=== PATIENT | male | born 1960 | race Caucasian/White ===

== ENCOUNTER 2019-10-29 22:01 | Inpatient (IN) | payer BC ==
--- NOTE | 2019-10-29 22:15 | PDOC ---
Rapid Medical Evaluation Chief Complaint: Respiratory Time Seen by Provider: 10/29/19 22:10 Medical Evaluation: 10/29/19 22:10 55 year old male recent travel from [place] via flight 6 days ago c/o cough, shortness of breath and fever x2 days. denies taking ibuprofen / tylenol at home. PMHX: cardiomyopathy PMHX: Renetta Aponte Cardiology : Dr. Healy ([facility]) PE: patient alert ox3 slight shortness of breath A: suspected covid P: chest xray covid Discharge Disposition - Diagnosis Suspected 2019 novel coronavirus infection, Shortness of breath - Referrals Referrals: Renetta Aponte MD [Primary Care Provider] - - Patient Instructions - Post Discharge Activity
[2019-10-29] MEDS ORDERED: ACETAMINOPHEN 325 MG TABLET (FP) PO ONE (22:32)
--- NOTE | 2019-10-29 22:59 | PDOC ---
Attending Attestation - Resident Resident Name: Chandler Felder - ED Attending Attestation I have performed the following: I have examined & evaluated the patient, The case was reviewed & discussed with the resident, I agree w/resident's findings & plan - HPI HPI: 10/29/19 22:54 see resident hpi - Physicial Exam PE: 10/29/19 22:54 see resident exam - Medical Decision Making 10/29/19 22:58 58-year-old male with recent travel to the [facility] and airplane exposure with body aches nausea and low-grade fevers We will proceed with sepsis evaluation including viral swabs for influenza RSV and COVID-19 Due to patient's history of cardiomyopathy we will also evaluate for acute cardiac disease Pending results and reevaluation we will consider observation Discharge - Discharge Information Problems reviewed: Yes Clinical Impression/Diagnosis: Suspected 2019 novel coronavirus infection, Shortness of breath - Follow up/Referral Referrals: Renetta Aponte MD [Primary Care Provider] - - Patient Discharge Instructions - Post Discharge Activity
[2019-10-29] MEDS ORDERED: ONDANSETRON 4 MG/2 ML VIAL IVPUSH ONE (23:14)
[2019-10-29] MEDS ORDERED: ACETAMINOPHEN 1000 MG/100 ML VIAL (NON FORMULARY) IVPB ONE (23:14)
[2019-10-29] MEDS ORDERED: ACETAMINOPHEN INJECTION 100 ML IVPB ONE (23:16)
--- NOTE | 2019-10-30 00:11 | PDOC ---
History of Present Illness - General Chief Complaint: SIRS, Suspected/Possible Stated Complaint: FEVER,COUGH,SOB Time Seen by Provider: 10/29/19 22:10 History Source: Patient, Family Exam Limitations: No Limitations - History of Present Illness Initial Comments: 10/30/19 00:05 Zaire Piedra is a 58M with PMH cardiomyopathy of unknown origin taken Coreg/lisinopril/atrovastatin here for fever/nausea/myalgias and concern for covid-19. 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 No sick contacts at home or other exposures other than plane/trip. Denies chest pain, abd pain, urinary sx, has not been taking Tylenol or Motrin. Denies alcohol/drug/tobacco use. NKDA No other PSH. Past History - Medical History Allergies/Adverse Reactions: Allergies Allergy/AdvReac Type Severity Reaction Status Date / Time Fish Containing Products Allergy Verified 10/29/19 22:14 Home Medications: Ambulatory Orders Carvedilol [Coreg -] 12.5 mg PO BID 10/29/19 Lisinopril 5 mg PO DAILY 10/29/19 Simvastatin 20 mg PO HS 10/29/19 Cardiac Disorders: Yes COPD: No CHF: Yes Other medical history: arthritic hips Alexy - Immunization History Immunization Up to Date: Yes - Psycho-Social/Smoking History Smoking History: Never smoked - Substance Abuse Hx (Audit-C & DAST Scrn) How often the patient has a drink containing alcohol: Never Score: In Men: 4 or > Positive; In Women: 3 or > Positive: 0 Screen Result (Pos requires Nsg. Audit-10AR): Negative In the last yr the pt used illegal drug/Rx for NonMed reason: No Score: Yes response is considered Positive: 0 Screen Result (Positive result requires Nsg. DAST-10): Negative *Physical Exam - Vital Signs Last Vital Signs Temp Pulse Resp BP Pulse Ox 100.5 F H 110 H 20 122/90 94 L 10/29/19 22:07 10/29/19 22:07 10/29/19 22:07 10/29/19 22:07 10/29/19 22:07 ED Treatment Course - LABORATORY CBC & Chemistry Diagram: 10/30/19 00:00 10/30/19 00:00 - Medications Given in the ED: ED Medications Discontinued Medications Generic Name Dose Route Start Last Admin Trade Name Leonard PRN Reason Stop Dose Admin Acetaminophen 650 mg 10/29/19 22:32 10/29/19 23:25 Tylenol - PO 10/29/19 22:33 Not Given ONCE ONE Acetaminophen 1,000 mg 10/29/19 23:14 10/29/19 23:24 Ofirmev Injection - IVPB 10/29/19 23:15 1,000 mg ONCE ONE Administration Ondansetron HCl 4 mg 10/29/19 23:14 10/29/19 23:25 Zofran Injection IVPUSH 10/29/19 23:15 4 mg ONCE ONE Administration Medical Decision Making - Medical Decision Making 10/30/19 00:08 Patient has PMH cardiomyopathy but no chest pain, recent travel to [address] and now has fever/myalgias/SOB 6 days later, concerned for covid-19 infection. Getting basic labs, covid-19 swab, CXR, ECG given CM, and will evaluate for walking O2sat, giving Zofran and Ofirmev for nausea and fever. Likely meets criteria for discharge home with covid-19 precautions. 10/30/19 00:18 ECG shows sinus tachycardia HR 104 QTc 468, no CHRIS/D or TWI. CXR no concerning PNA or covid-19 pathology, no acute findings. Satting 96% on 3LNC. 10/30/19 01:48 Labs notable for: - Hgb 17.1 - Hct 51 - Plt 125 - CMP WNL - CP WNL - LDH 283 - ferritin 520.8 - glucose 223 CBC appears hemoconcentrated, giving 1L LR Patient desats to 90% off 3L NC O2, asymptomatic but candidate for admission given comorbidities and desat. Getting remaining covid-19 markers and CTA chest for further evaluation. Plan to admit to Med/Surg for likely covid-19 infection. 10/30/19 03:52 CTA bedside read shows bilateral ground glass opacities consistent with COVID- 19, no PE, also has R lung nodule. Starting on 125 Solu-Medrol, will discuss AC with admitting team. 10/30/19 04:19 Discussed case with malia Vallejo for admit to Med Surger under Dr. Brown, will figure out AC regimen and add on d-dimer for AM labs. Discharge - Discharge Information Problems reviewed: Yes Clinical Impression/Diagnosis: Suspected 2019 novel coronavirus infection, Shortness of breath Respiratory failure Qualifiers: Chronicity: acute Respiratory failure complication: hypoxia Qualified Code(s): J96.01 - Acute respiratory failure with hypoxia Condition: Stable - Admission Yes - Follow up/Referral - Patient Discharge Instructions - Post Discharge Activity
[2019-10-30 00:35] LABS: BASO % 0.3 % (0-2.0); EOS % 0.3 % (0-4.5); HEMOGLOBIN 17.1 GM/dL (11.7-16.9); MCH 28.8 pg (25.7-33.7); MCHC 33.5 g/dl (32.0-35.9); MEAN CELL VOLUME 86.2 fl (80-96); MEAN PLT VOLUME 9.5 fl (7.5-11.1); MONO % 7.8 % (3.8-10.2); NEUT % 71.6 % (42.8-82.8); PLATELET COUNT 125 K/MM3 (134-434); RBC 5.91 M/mm3 (4.00-5.60); RDW 14.4 % (11.9-15.9); WHITE BLOOD COUNT 5.8 K/mm3 (4.0-10.0)
[2019-10-30 00:43] LABS: INR 1.1 (0.83-1.09)
[2019-10-30 00:46] LABS: ACTIVATED PTT 29.8 SECONDS (25.2-36.5)
[2019-10-30 01:14] LABS: ALBUMIN 3.8 g/dl (3.4-5.0); ALK PHOS 109 U/L (45-117); ANION GAP 13 MMOL/L (8-16); BILIRUBIN,TOTAL 0.7 mg/dL (0.2-1); BLOOD UREA NITROGEN 9.6 mg/dL (7-18); CALCIUM 8.7 mg/dL (8.5-10.1); CHLORIDE 102 mmol/L (98-107); CO2 22 mmol/L (21-32); GLUCOSE,RANDOM 223 mg/dL (74-106); POTASSIUM 3.6 mmol/L (3.5-5.1); SGOT/AST 35 U/L (15-37); SGPT/ALT 39 U/L (13-61); SODIUM 138 mmol/L (136-145); TOT PROT 7.3 g/dl (6.4-8.2)
[2019-10-30] MEDS ORDERED: LACTATED RINGERS SOLUTION 1000 ML INFUS.BAG IV ONE (01:58)
[2019-10-30 02:38] LABS: LDH 283 U/L (87-246)
[2019-10-30] MEDS ORDERED: methylPREDNISolone NA SUCC 125 MG/2 ML VIAL IVPB ONE (03:49)
[2019-10-30] MEDS ORDERED: methylPREDNISolone NA SUCC 125 MG/2 ML VIAL ONE (03:58)
[2019-10-30] MEDS ORDERED: ALBUTEROL SO4 HFA INHALER IH PRN (04:43)
[2019-10-30] MEDS ORDERED: CEFTRIAXONE 1 GM in DEXTROSE 5%-WATER - 50 ML IVPB ONE (04:46)
[2019-10-30] MEDS ORDERED: AZITHROMYCIN IVPB 500 MG in DEXTROSE 5%-WATER - 250 ML IVPB ONE (04:47)
--- NOTE | 2019-10-30 04:51 | HP ---
CHIEF COMPLAINT: Fever, SOB, Myalgias PCP: Reggie Aponet HISTORY OF PRESENT ILLNESS: This is a 58 y/o male with a PMHx of Cardiomyopathy of unknown origin. Who presents to the ED with subjective fever 99.5, increased SOB, myalgias. loss of appetite x3 days. Patient reports recent travel between [facility] x 5 weeks. He reports returning from [place] last and was self- quarantining. He reports having abdominal pain x 1 week after eating pork sausage which he attributes to possible food poisoning. Patient denies chills, KAUR, dizziness, CP, palpitations, vomiting, diarrhea, constipation, dysuria ER course was notable for: (1) Sepsis Criteria Met: T 100.5, P 110, Spo2 90-94% (2) CTA- Neg PE, mild non-specific basilar and peripheral predominate reticulonodular infiltrates most likely due to Covid-19 Pneumonia (3) Ferritin- 520.8 (4) LD 283 (5) Platelets 125 Recent Travel: [place], [place] PAST MEDICAL HISTORY: See HPI PAST SURGICAL HISTORY: None Social History: Smoking: Former, > heavy quit 3 yrs ago Alcohol: Social Drugs: Denies Single, lives alone, employed [employer] Allergies Fish Containing Products Allergy (Verified 10/29/19 22:14) HOME MEDICATIONS: Home Medications Medication Instructions Recorded Carvedilol [Coreg -] 12.5 mg PO BID 10/29/19 Lisinopril 5 mg PO DAILY 10/29/19 Simvastatin 20 mg PO HS 10/29/19 REVIEW OF SYSTEMS CONSTITUTIONAL: fever,generalized weakness, malaise, loss of appetite Absent: chills, diaphoresis, weight change HEENT: Absent: rhinorrhea, nasal congestion, throat pain, throat swelling, difficulty swallowing, mouth swelling, ear pain, eye pain, visual changes CARDIOVASCULAR: Absent: chest pain, syncope, palpitations, irregular heart rate, lightheadedness, peripheral edema RESPIRATORY: shortness of breath, dyspnea with exertion Absent: cough, orthopnea, wheezing, stridor, hemoptysis GASTROINTESTINAL: abdominal pain, nausea Absent: abdominal distension, vomiting, diarrhea, constipation, melena, hematochezia GENITOURINARY: Absent: dysuria, frequency, urgency, hesitancy, hematuria, flank pain, genital pain MUSCULOSKELETAL: myalgia, arthralgia Absent: joint swelling, back pain, neck pain SKIN: Absent: rash, itching, pallor HEMATOLOGIC/IMMUNOLOGIC: Absent: easy bleeding, easy bruising, lymphadenopathy, frequent infections ENDOCRINE: Absent: unexplained weight gain, unexplained weight loss, heat intolerance, cold intolerance NEUROLOGIC: Absent: headache, focal weakness or paresthesias, dizziness, unsteady gait, seizure, mental status changes, bladder or bowel incontinence PSYCHIATRIC: Absent: anxiety, depression, suicidal or homicidal ideation, hallucinations. PHYSICAL EXAMINATION Vital Signs - 24 hr 10/29/19 10/29/19 10/30/19 22:07 23:00 01:15 Temperature 100.5 F H 99.1 F Pulse Rate 110 H Pulse Rate [ 79 Left Radial] Respiratory 20 16 Rate Blood Pressure 122/90 Blood Pressure 121/74 [Right Arm] O2 Sat by Pulse 94 L 98 98 Oximetry (%) 10/30/19 04:33 Temperature Pulse Rate Pulse Rate [ Left Radial] Respiratory Rate Blood Pressure Blood Pressure [Right Arm] O2 Sat by Pulse 98 Oximetry (%) GENERAL: Awake, alert, and fully oriented, in no acute distress. HEAD: Normal with no signs of trauma. EYES: Pupils equal, round and reactive to light, extraocular movements intact, sclera anicteric, conjunctiva clear. No lid lag. EARS, NOSE, THROAT: Ears normal, nares patent, oropharynx clear without exudates. Moist mucous membranes. NECK: Normal range of motion, supple without lymphadenopathy, JVD, or masses. LUNGS: Diminished bases. No wheezes, and no crackles. No accessory muscle use. HEART: Regular rate and rhythm, normal S1 and S2 without murmur, rub or gallop. ABDOMEN: Obese,soft, nontender, not distended, normoactive bowel sounds, no guarding, no rebound, no masses. No hepatomegaly or splenomegaly. MUSCULOSKELETAL: Normal range of motion at all joints. No bony deformities or tenderness. No CVA tenderness. UPPER EXTREMITIES: 2+ pulses, warm, well-perfused. No cyanosis. No clubbing. No peripheral edema. LOWER EXTREMITIES: 2+ pulses, warm, well-perfused. No calf tenderness. No peripheral edema. NEUROLOGICAL: Cranial nerves II-XII intact. Normal speech. Gait not observed. PSYCHIATRIC: Cooperative. Good eye contact. Appropriate mood and affect. SKIN: Warm, dry, normal turgor, no rashes or lesions noted, normal capillary refill. Laboratory Results - last 24 hr 10/30/19 10/30/19 10/30/19 00:00 00:00 00:00 WBC 5.8 RBC 5.91 H Hgb 17.1 H Hct 51.0 H MCV 86.2 MCH 28.8 MCHC 33.5 RDW 14.4 Plt Count 125 L MPV 9.5 Absolute Neuts (auto) 4.2 Neutrophils % 71.6 Lymphocytes % 20.0 Monocytes % 7.8 Eosinophils % 0.3 Basophils % 0.3 Nucleated RBC % 0 PT with INR 13.00 INR 1.10 H PTT (Actin FS) 29.8 Sodium 138 Potassium 3.6 Chloride 102 Carbon Dioxide 22 Anion Gap 13 BUN 9.6 Creatinine 1.0 Est GFR (CKD-EPI)AfAm 95.73 Est GFR (CKD-EPI)NonAf 82.60 Random Glucose 223 H Calcium 8.7 Ferritin 520.8 H Total Bilirubin 0.7 AST 35 ALT 39 Alkaline Phosphatase 109 LD Total 283 H Creatine Kinase 64 Troponin I < 0.02 Total Protein 7.3 Albumin 3.8 ASSESSMENT/PLAN: 58 y/o male with a PMHx of Cardiomyopathy unknown origin. Admitted to M/S for Suspected Covid-19 Infection, Pneumonia, Acute Respiratory Failure with Hypoxia for further evaluation of their emergent condition. 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 However with patient's presenting symptoms and recent travel to [place] he is more likely a high risk Covid PCR-pending Isolation Precautions- Airborne, Droplet, Contact Chest Xray image reviewed- ?infiltrate b/l CTA image, report reviewed- neg PE, basilar infiltrates suggestive of Covid Pneumonia Blood Cultures, Urine Culture-pending Ceftriaxone, Azithromycin for CAP Appreciate ID and Pulmonology consults Monitor CBC, CMP, Mg, CRP, LDH, Ferritin, dDimer O2 MVI Zinc Albuterol MDI Will start on Eliquis Monitor vitals Code(s): Z20.828 - CONTACT W AND EXPOSURE TO OTH VIRAL COMMUNICABLE DISEASES (2) Acute respiratory failure with hypoxia Assessment/Plan: Likely due to Covid 19 Infection vs PE Patient improved with supplemental O2 Chest Xray image reviewed- ? infiltrate CTA reviewed- no PE, mild nonspecific basilar and peripheral predominant reticulonodular infiltrates most likely due to Covid 19 pneumonia Continue O2 Appreciate Pulmonology consult Albuterol MDI Monitor vitals Code(s): J96.01 - ACUTE RESPIRATORY FAILURE WITH HYPOXIA (3) Sepsis Assessment/Plan: Likely secondary to Covid-19 Infection Pneumonitis Sepsis Criteria Met: T 100.5, P 110, Spo2 90-94% qSOFA 1 Blood Cultures-pending Urine Culture-pending Chest Xray-reviewed CTA-reviewed Will treat empirically with Ceftriaxone, Azithromycin Appreciate ID consult Monitor CBC, CMP Maintain MAP >65 Code(s): A41.9 - SEPSIS, UNSPECIFIED ORGANISM (4) Pneumonia Assessment/Plan: Likely due to Covid 19 infection High Risk for COVID- recent travel from [place] (state with increased Covid cases) Blood Cultures-pending Urine Legionella-pending Initiated Ceftriaxone, Azithromycin for CAP Chest Xray-reviewed CTA-reviewed O2 Monitor CBC, CMP Monitor vitals Code(s): J18.9 - PNEUMONIA, UNSPECIFIED ORGANISM (5) Cardiomyopathy Assessment/Plan: stable Continue Coreg, Lisinopril EKG-ST, nonspecific ST abnormality, QTC 468ms Trop 0.02 Code(s): I42.9 - CARDIOMYOPATHY, UNSPECIFIED Visit type - Emergency Visit Emergency Visit: Yes ED Registration Date: 10/29/19 Care time: The patient presented to the Emergency Department on the above date and was hospitalized for further evaluation of their emergent condition. - New Patient This patient is new to me today: Yes Date on this admission: 10/30/19 - Critical Care Critical Care patient: No
[2019-10-30] MEDS ORDERED: AZITHROMYCIN IVPB 500 MG/250 ML BAG IVPB ONE (05:42)
[2019-10-30] MEDS ORDERED: CEFTRIAXONE 1 GM/50 ML BAG ONE (05:42)
--- NOTE | 2019-10-30 08:03 | PN ---
Teaching Attending Note Name of Resident: Anabel Yoo ATTENDING PHYSICIAN STATEMENT I saw and evaluated the patient. I reviewed the resident's note and discussed the case with the resident. I agree with the resident's findings and plan as documented. SUBJECTIVE: OBJECTIVE: Vital Signs Temperature 98.3 F 10/30/19 06:50 Pulse Rate 88 10/30/19 06:50 Respiratory Rate 18 10/30/19 06:50 Blood Pressure 130/74 10/30/19 06:50 O2 Sat by Pulse Oximetry (%) 95 10/30/19 06:50 General: Elderly man, comfortable, not in distress HEENT mucous membranes moist, no anemia, no jaundice, PERRLA, no nystagmus Neck: No JVD, supple, no bruit, thyroid palpably normal, normal carotid pulsations. Chest: Nontender, bilateral minimal basal rales. CVS: S1-S2 regular no murmur/gallop/rub Abdomen: Nondistended, soft, bowel sounds present. Extremities: No edema., No Calf tenderness, pulses present VISUAL ASSOCIATE: AO X3 , no gross motor sensory deficit CBC,CMP WBC 5.8 K/mm3 (4.0-10.0) 10/30/19 00:00 RBC 5.91 M/mm3 (4.00-5.60) H 10/30/19 00:00 Hgb 17.1 GM/dL (11.7-16.9) H 10/30/19 00:00 Hct 51.0 % (35.4-49) H 10/30/19 00:00 MCV 86.2 fl (80-96) 10/30/19 00:00 MCH 28.8 pg (25.7-33.7) 10/30/19 00:00 MCHC 33.5 g/dl (32.0-35.9) 10/30/19 00:00 RDW 14.4 % (11.9-15.9) 10/30/19 00:00 Plt Count 125 K/MM3 (134-434) L 10/30/19 00:00 MPV 9.5 fl (7.5-11.1) 10/30/19 00:00 Absolute Neuts (auto) 4.2 K/mm3 (1.5-8.0) 10/30/19 00:00 Neutrophils % 71.6 % (42.8-82.8) 10/30/19 00:00 Lymphocytes % 20.0 % (8-40) 10/30/19 00:00 Monocytes % 7.8 % (3.8-10.2) 10/30/19 00:00 Eosinophils % 0.3 % (0-4.5) 10/30/19 00:00 Basophils % 0.3 % (0-2.0) 10/30/19 00:00 Nucleated RBC % 0 % (0-0) 10/30/19 00:00 Sodium 138 mmol/L (136-145) 10/30/19 00:00 Potassium 3.6 mmol/L (3.5-5.1) 10/30/19 00:00 Chloride 102 mmol/L (98-107) 10/30/19 00:00 Carbon Dioxide 22 mmol/L (21-32) 10/30/19 00:00 Anion Gap 13 MMOL/L (8-16) 10/30/19 00:00 BUN 9.6 mg/dL (7-18) 10/30/19 00:00 Creatinine 1.0 mg/dL (0.55-1.3) 10/30/19 00:00 Est GFR (CKD-EPI)AfAm 95.73 10/30/19 00:00 Est GFR (CKD-EPI)NonAf 82.60 10/30/19 00:00 POC Glucometer 263 UNITS (80-120) 10/30/19 07:38 Random Glucose 223 mg/dL (74-106) H 10/30/19 00:00 Calcium 8.7 mg/dL (8.5-10.1) 10/30/19 00:00 Ferritin 520.8 ng/ml (8-388) H 10/30/19 00:00 Total Bilirubin 0.7 mg/dL (0.2-1) 10/30/19 00:00 AST 35 U/L (15-37) 10/30/19 00:00 ALT 39 U/L (13-61) 10/30/19 00:00 Alkaline Phosphatase 109 U/L (45-117) 10/30/19 00:00 LD Total 283 U/L (87-246) H 10/30/19 00:00 Creatine Kinase 64 U/L (26-308) 10/30/19 00:00 Troponin I < 0.02 ng/ml (0.00-0.05) 10/30/19 00:00 Total Protein 7.3 g/dl (6.4-8.2) 10/30/19 00:00 Albumin 3.8 g/dl (3.4-5.0) 10/30/19 00:00 D-dimers: 1042 CRP: 1.7 Chest x-ray: Bilateral groundglass infiltrate COVID-19: Collected result awaited: ECG:shows sinus tachycardia HR 104 QTc 468, no CHRIS/D or TWI. CT chest: No pulmonary embolism no pulmonary embolism Large right paratracheal lymph node 2.6X 1.6 cm 8 X 8 mm right middle lobe nodule Patchy infiltrate Early COPD Active Medications Acetaminophen (Tylenol -) 650 mg PO Q6H PRN PRN Reason: FEVER Albuterol Sulfate (Ventolin Hfa Inhaler -) 2 puff IH Q6H PRN PRN Reason: SHORT OF BREATH/WHEEZING Apixaban (Eliquis -) 5 mg PO BID KUMAR Atorvastatin Calcium (Lipitor -) 10 mg PO HS KUMAR Carvedilol (Coreg -) 12.5 mg PO BID KUMAR Ceftriaxone Sodium 1 gm/ (Dextrose) 50 mls @ 200 mls/hr IVPB DAILY KUMAR; Protocol Azithromycin 500 mg/ Dextrose 250 mls @ 250 mls/hr IVPB DAILY KUMAR Lisinopril (Prinivil) 5 mg PO DAILY [facility] Multivitamins/Minerals/Vitamin C (Tab-A-Vit -) 1 tab PO DAILY KUMAR Zinc Sulfate (Orazinc -) 220 mg PO DAILY KUMAR ASSESSMENT AND PLAN: 58-year-old man history of nonischemic cardiomyopathy diagnosed 10 years ago underwent cardiac catheterization, stable ejection fraction 37% last echo was 3 years ago, follow-up at [facility], 4 pillows orthopnea stable, no PND, stage C, NYHA class 1 , no recent worsening shortness of breath, came back from [place] on last , 2 days ago developed dry cough with low-grade fever and shortness of breath came to ED for evaluation normal CBC, chest x-ray shows bilateral patchy infiltrate Active issues: 1. Hypoxic respiratory failure:, patient present with fever with cough and shortness of breath recent traveling to [place], considering imaging finding, mildly elevated D-dimers, LDH, and ferritin will rule out COVID-19 pneumonia, possibility of community-acquired pneumonia on empiric ceftriaxone and azithromycin, hypoxemia improved, follow-up urine Legionella and streptococcal antigen, follow-up pending blood culture, meantime will will continue high intensity DVT prophylaxis. 2. 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 Continue lisinopril 5 mg, Coreg at present no indication for diuretics 3. Pulmonary nodule and lymphadenopathy: Patient has a right-sided lymph paratracheal lymph node 2.6 x1.6 with right middle lobe pulmonary nodule history of smoking and mild COPD changes will follow-up with pulmonary meantime continue albuterol as needed. 4. Morbid obesity nutrition consult and weight management as an outpatient. Case discussed with resident.
[2019-10-30] MEDS ORDERED: MULTIVITAMINS (DAILY MVI) TABLET (FP) ONE (08:56)
[2019-10-30] MEDS ORDERED: LISINOPRIL 5 MG TABLET (FP) ONE (08:57)
[2019-10-30] MEDS ORDERED: APIXABAN 5 MG TABLET ONE (08:57)
[2019-10-30] MEDS ORDERED: ZINC SULFATE 220 MG CAPSULE (FP) ONE (08:57)
[2019-10-30] MEDS ORDERED: CARVEDILOL 12.5 MG TABLET (FP) ONE ×2 (08:58→21:15)
[2019-10-30] MEDS: CARVEDILOL 12.5 MG TABLET (FP) PO SCH ×2 (09:03→21:35)
[2019-10-30] MEDS: ZINC SULFATE 220 MG CAPSULE (FP) PO SCH (09:03)
[2019-10-30] MEDS: MULTIVITAMINS (DAILY MVI) TABLET (FP) PO SCH (09:03)
[2019-10-30] MEDS: LISINOPRIL 5 MG TABLET (FP) PO SCH (09:03)
[2019-10-30] MEDS ORDERED: ENOXAPARIN NA (PORCINE) 120 MG/0.8 ML DISP.SYRIN SQ SCH (10:00)
[2019-10-30] MEDS ORDERED: APIXABAN 5 MG TABLET PO SCH ×2 (10:00→22:00)
[2019-10-30] MEDS ORDERED: ACETAMINOPHEN 325 MG TABLET (FP) ONE (10:15)
[2019-10-30] MEDS: ACETAMINOPHEN 325 MG TABLET (FP) PO PRN (10:18)
--- NOTE | 2019-10-30 10:40 | EKG ---
Test Reason : Blood Pressure : / mmHG Vent. Rate : 104 BPM Atrial Rate : 104 BPM P-R Int : 162 ms QRS Dur : 100 ms QT Int : 356 ms P-R-T Axes : 051 -04 049 degrees QTc Int : 468 ms SINUS TACHYCARDIA NONSPECIFIC ST ABNORMALITY ABNORMAL ECG NO PREVIOUS ECGS AVAILABLE Confirmed by MD Gurpreet, Dylon ([id number]) on 10/30/2019 10:39:34 AM Referred By: Confirmed By:Dylon Vázquez MD
[2019-10-30 11:07] LABS: MAGNESIUM 2.2 mg/dL (1.8-2.4); N-TERMINAL BNP 175.4 pg/ml (5-125)
--- NOTE | 2019-10-30 11:20 | PN ---
Progress Note (short form) - Note Progress Note: ID consult dictated pneumonia suspected covid 19 disease in traveler from [place] he is not hypoxic would continue current treatment for CAP-rocephin/zith f/u cultures, urinary antigen covid pcr- isolate obesity and history of cardiomyopathy make him at high risk for covid 19 - would observe in hospital for now polycythemia- ?- repeat cbc in am Problem List - Problems (1) Pneumonia Code(s): J18.9 - PNEUMONIA, UNSPECIFIED ORGANISM (2) Suspected 2019 novel coronavirus infection Code(s): Z20.828 - CONTACT W AND EXPOSURE TO [facility] VIRAL COMMUNICABLE DISEASES (3) Polycythemia Code(s): D75.1 - SECONDARY POLYCYTHEMIA
--- NOTE | 2019-10-30 12:36 | PN ---
Physical Exam: SUBJECTIVE: Patient seen and examined at bedside this morning. Patient admitted overnight due to shortness of breath and subjective fevers. Chest CT suspicious for COVID pneumonia. This morning, patient reports feeling better, saturating >95% on room air, without any complaints of chest pain, SOB, nausea, vomiting, abdominal pain, diarrhea, urinary symptoms. OBJECTIVE: Vital Signs Temperature 98.9 F 10/30/19 10:36 Pulse Rate 82 10/30/19 10:36 Respiratory Rate 16 10/30/19 10:36 Blood Pressure 133/72 10/30/19 10:36 O2 Sat by Pulse Oximetry (%) 95 10/30/19 10:36 GENERAL: The patient is awake, alert, and fully oriented, in no acute distress. NECK: supple. LUNGS: Minimal bibasilar rales HEART: Regular rate and rhythm, S1, S2 without murmur ABDOMEN: Soft, nontender, nondistended, normoactive bowel sounds EXTREMITIES: 2+ pulses, warm, well-perfused, no edema. NEUROLOGICAL: Cranial nerves II through XII grossly intact. Normal speech PSYCH: Normal mood, normal affect. SKIN: Warm, dry, normal turgor Laboratory Results - last 24 hr 10/30/19 10/30/19 10/30/19 00:00 00:00 00:00 WBC 5.8 RBC 5.91 H Hgb 17.1 H Hct 51.0 H MCV 86.2 MCH 28.8 MCHC 33.5 RDW 14.4 Plt Count 125 L MPV 9.5 Absolute Neuts (auto) 4.2 Neutrophils % 71.6 Lymphocytes % 20.0 Monocytes % 7.8 Eosinophils % 0.3 Basophils % 0.3 Nucleated RBC % 0 PT with INR 13.00 INR 1.10 H PTT (Actin FS) 29.8 D-Dimer Sodium 138 Potassium 3.6 Chloride 102 Carbon Dioxide 22 Anion Gap 13 BUN 9.6 Creatinine 1.0 Est GFR (CKD-EPI)AfAm 95.73 Est GFR (CKD-EPI)NonAf 82.60 POC Glucometer Random Glucose 223 H Calcium 8.7 Magnesium Ferritin 520.8 H Total Bilirubin 0.7 AST 35 ALT 39 Alkaline Phosphatase 109 LD Total 283 H Creatine Kinase 64 Troponin I < 0.02 C-Reactive Protein B-Natriuretic Peptide Total Protein 7.3 Albumin 3.8 10/30/19 10/30/19 10/30/19 06:07 07:38 08:00 WBC RBC Hgb Hct MCV MCH MCHC RDW Plt Count MPV Absolute Neuts (auto) Neutrophils % Lymphocytes % Monocytes % Eosinophils % Basophils % Nucleated RBC % PT with INR INR PTT (Actin FS) D-Dimer 1027 H Sodium Potassium Chloride Carbon Dioxide Anion Gap BUN Creatinine Est GFR (CKD-EPI)AfAm Est GFR (CKD-EPI)NonAf POC Glucometer 228 263 Random Glucose Calcium Magnesium Ferritin Total Bilirubin AST ALT Alkaline Phosphatase LD Total Creatine Kinase Troponin I C-Reactive Protein B-Natriuretic Peptide Total Protein Albumin 10/30/19 10/30/19 08:00 11:03 WBC RBC Hgb Hct MCV MCH MCHC RDW Plt Count MPV Absolute Neuts (auto) Neutrophils % Lymphocytes % Monocytes % Eosinophils % Basophils % Nucleated RBC % PT with INR INR PTT (Actin FS) D-Dimer Sodium Potassium Chloride Carbon Dioxide Anion Gap BUN Creatinine Est GFR (CKD-EPI)AfAm Est GFR (CKD-EPI)NonAf POC Glucometer 315 Random Glucose Calcium Magnesium 2.2 Ferritin 494.4 H Total Bilirubin AST ALT Alkaline Phosphatase LD Total 241 Creatine Kinase Troponin I C-Reactive Protein 1.7 H B-Natriuretic Peptide 175.4 H Total Protein Albumin Active Medications Generic Name Dose Route Start Last Admin Trade Name Freq PRN Reason Stop Dose Admin Acetaminophen 650 mg 10/30/19 06:00 10/30/19 10:18 Tylenol - PO 650 mg Q6H PRN Administration FEVER Albuterol Sulfate 2 puff 10/30/19 04:43 Ventolin Hfa Inhaler - IH Q6H PRN SHORT OF BREATH/WHEEZING Apixaban 2.5 mg 10/30/19 22:00 Eliquis - PO BID [facility] Atorvastatin Calcium 10 mg 10/30/19 22:00 Lipitor - PO HS [facility] Carvedilol 12.5 mg 10/30/19 10:00 10/30/19 09:03 Coreg - PO 12.5 mg BID [facility] Administration Ceftriaxone Sodium 1 gm/ 50 mls @ 200 mls/hr 10/31/19 10:00 Dextrose IVPB DAILY [facility] Protocol Azithromycin 500 mg/ Dextrose 250 mls @ 250 mls/hr 10/31/19 10:00 IVPB DAILY [facility] Lisinopril 5 mg 10/30/19 10:00 10/30/19 09:03 Prinivil PO 5 mg DAILY [facility] Administration Multivitamins/Minerals/Vitamin C 1 tab 10/30/19 10:00 10/30/19 09:03 Tab-A-Vit - PO 1 tab DAILY [facility] Administration Zinc Sulfate 220 mg 10/30/19 10:00 10/30/19 09:03 Orazinc - PO 220 mg DAILY [facility] Administration ASSESSMENT/PLAN: Patient is a 58 y/o male with a PMHx of Cardiomyopathy of unknown origin. Who presents to the ED with subjective fever 99.5, increased SOB, myalgias. loss of appetite x3 days. Patient reports recent travel between [place] and [place] x 5 weeks. #Sepsis -2/2 pneumonia, r/o COVID -Chest CTA - No gross evidence of PE. Large right paratracheal lymph node that contains a fatty hilum, nonspecific. Mild emphysematous/COPD changes with peripheral reticulonodular pattern mainly in the lower lung, posteriorly likely chronic. Cannot rule out superimposed infiltrates. -Continue IV Ceftriaxone and Azithromycin day 2 -Eliquis 2mg bid for ppx -Covid pending -Blood cultures, urine legionella/pneumonia pending -ID (Dr. Al) consulted. REcommendations appreciated. #Acute respiratory distress -now improved -probably 2/2 pneumonia, r/o covid given recent travel from [place] -now saturating >95% on room air -urine legionella/pneumonia ordered -covid pending -ESR/CRP, Ferritin, LDH -on IV Ceftriaxone and Azithromycin -Pulm (Dr. Hernandez) consulted. Recommendations appreciated. #HFrEF -stable, no signs of acute exacerbation -last EF reported by patient to be 37% -Hx of nonischemic cardiomyopathy -BNP 175 -echo ordered -Continue Lisinopril 5mg daily and Coreg 12.5mg bid #Pulmonary nodule -Chest CT - 7x8mm pulmonary nodule RML, anteriorly abutting the fissure which is nonspecific -follow up CT scan of the chest in 3-6 months is needed for further evaluation. -will refer to outpatient pulmonology. #FEN -Not on any standing fluids -Electrolytes wnl, routine bmp monitoring -Diabetic diet #Prophylaxis -Eliquis 2.5mg bid #Disposition -full code -tele Visit type - Emergency Visit Emergency Visit: Yes ED Registration Date: 10/30/19 Care time: The patient presented to the Emergency Department on the above date and was hospitalized for further evaluation of their emergent condition. - New Patient This patient is new to me today: Yes Date on this admission: 10/30/19 - Critical Care Critical Care patient: No ATTENDING PHYSICIAN STATEMENT I saw and evaluated the patient. I reviewed the resident's note and discussed the case with the resident. I agree with the resident's findings and plan as documented. SUBJECTIVE: OBJECTIVE: ASSESSMENT AND PLAN:
--- NOTE | 2019-10-30 14:08 | CON.PULM ---
Consult Consult Specialty:: PULMONARY Referred by:: Dr Bella Reason for Consultation:: suspected COVID19 - History of Present Illness Chief Complaint: shortness of breath History of Present Illness: 58yo male with h/o cardiomyopathy who was admitted with worsening shortness of breath x 3 days. He was traveling for work, was in [place] x 2 weeks then [place] x 3 weeks and returned on 10/23. On 10/26, started experiencing generalized weakness, malaise, low grade fevers. Started having shortness of breath with a nonproductive cough. States he was masking but the people he was in contact with people who were not. CT chest done showing scattered peripheral ground glass opacities. He is a nonsmoker. - History Source History Provided By: Patient, Medical Record Limitations to Obtaining History: No Limitations - Past Medical History Cardio/Vascular: Yes: Other (cardiomyopathy) - Smoking History Smoking history: Never smoked Home Medications - Allergies Allergies/Adverse Reactions: Allergies Allergy/AdvReac Type Severity Reaction Status Date / Time Fish Containing Products Allergy Verified 10/29/19 22:14 - Home Medications Home Medications: Ambulatory Orders Carvedilol [Coreg -] 12.5 mg PO BID 10/29/19 Lisinopril 5 mg PO DAILY 10/29/19 Simvastatin 20 mg PO HS 10/29/19 Review of Systems - Review of Systems Constitutional: reports: Fever, Malaise, Weakness HENT: denies: Throat Pain Neck: denies: Tenderness Cardiovascular: reports: Shortness of Breath. denies: Chest Pain Respiratory: reports: Cough, SOB on Exertion. denies: Wheezing Gastrointestinal: denies: Abdominal Pain Genitourinary: denies: Dysuria, Hematuria Neurological: denies: Headache Endocrine: denies: Unexplained Weight Loss Physical Exam Vital Sings: Vital Signs Temperature 98.9 F 10/30/19 10:36 Pulse Rate 82 10/30/19 10:36 Respiratory Rate 16 10/30/19 10:36 Blood Pressure 133/72 10/30/19 10:36 O2 Sat by Pulse Oximetry (%) 95 10/30/19 10:36 Constitutional: Yes: Calm Eyes: Yes: Conjunctiva Clear, EOM Intact HENT: Yes: Atraumatic, Normocephalic Neck: Yes: Supple, Trachea Midline Cardiovascular: Yes: Regular Rate and Rhythm Respiratory: Yes: Diminished (decreased breath sounds at the bases) ...Clubbing: No Gastrointestinal: Yes: Normal Bowel Sounds, Soft. No: Tenderness Edema: No Neurological: Yes: Alert, Oriented Labs: CBC, BMP 10/30/19 00:00 10/30/19 00:00 Imaging - Results Chest X-ray: Report Reviewed, Image Reviewed Cat Scan: Report Reviewed, Image Reviewed (scattered peripheral ground glass opacities) Problem List - Problems (1) Suspected 2019 novel coronavirus infection Code(s): Z20.828 - CONTACT W AND EXPOSURE TO OTH VIRAL COMMUNICABLE DISEASES Assessment/Plan Suspected COVID19 Cardiomyopathy Thrombocytopenia - f/u serologies - O2 to keep SpO2 >90% - trend ferritin, LDH, CRP - on empiric antibiotics - on empiric anticoagulation - will follow Thank you for this consult Nile Hunter MD
--- NOTE | 2019-10-30 14:41 | CONS ---
DATE OF CONSULTATION: DATE OF DICTATION: 10/30/2019 CHIEF COMPLAINT/HISTORY OF PRESENT ILLNESS: This is a 58-year-old man. He has a past medical history of cardiomyopathy of unclear etiology. His PMD is at [facility]. He works as a warehouse associate driver and was not traveling in June and July, but starting in August has had to resume travel for his work. He was in [place] for 2 weeks, followed by 4 weeks in [place]. He just flew back to [place] on . He reported his travels to [facility], and he self-quarantined. On Monday he started feeling malaise. He had some shortness of breath. He had a fever of 99.5, and he had loss of appetite. He denies any diarrhea. He denies any dysuria, and he has minimal cough. He has had very poor oral intake. He denies any chest pain or abdominal pain. He reports he was admitted yesterday evening. He had cultures sent. He was given ceftriaxone and Zithromax for possible CAP. He was noted to have an elevated D-dimer of 1027, and he had a CTA of his chest notable for no PE. He has a pulmonary nodule in the right middle lobe which was nonspecific. He has fatty liver. He is status post cholecystectomy. He has some COPD changes. As well, he has some peripheral infiltrates that are not officially read as consistent with COVID but appear to be consistent with COVID on my reading. He reports feeling much improved this morning with an O2 saturation of 95% on room air. PAST MEDICAL HISTORY: As stated. He has a history of cardiomyopathy, and he has had a cholecystectomy. SOCIAL HISTORY: He is a former smoker. He quit 3 years ago. Social alcohol. No substance use. He lives alone. ALLERGIES: He is allergic to FISH-CONTAINING PRODUCTS. MEDICATIONS: He takes Coreg, lisinopril, and simvastatin as an outpatient. REVIEW OF SYSTEMS: He reports improvement in his respiratory status. He is not requiring any oxygen and feels quite comfortable. He complained of fever which appears to be resolved, generalized weakness, and malaise, with loss of appetite. He has had myalgia as well. PHYSICAL EXAMINATION: General: He is awake and alert. Vital Signs: Temperature is 98.9. T-max was 100.5. Pulse of 82. Respiratory rate is 16. Blood pressure is 133/72. He is saturating 95% on room air. HEENT: He is normocephalic. His eyes are anicteric. He has no thrush or pharyngitis. He reports no sore throat. Neck: Supple. Lungs: Clear to auscultation. Heart: Regular rate and rhythm. Abdomen: Protuberant but soft and nontender. Extremities: Without edema. LABORATORY: White count is 5.8. Hemoglobin is 17.1. D-dimer is 1027. Ferritin is 520, with an LDH of 283. CRP is 1.7. COVID-19 PCR is pending. Cultures are pending. Imaging is as stated. SUMMARY: 1. This is a 58-year-old man with pneumonia, suspected COVID-19 disease in a traveler from [place]. He is not hypoxic at this time. Would continue current treatment for community-acquired pneumonia. Follow up cultures and urinary antigen. COVID PCR is pending. Would isolate him at this time. His obesity and history of cardiomyopathy make him high risk for COVID-19. Would observe in the hospital for now. 2. Polycythemia, perhaps secondary to his prior smoking. Would repeat a CBC in the morning. Case was discussed with the hospitalist. PILAR LARIOS M.D. [id number]
--- NOTE | 2019-10-30 17:37 | ECHO ---
Version: 1 Name: RICHARD GIFFORD Exam: Adult Echocardiogram Study Date: 10/30/2019, 2:12 PM Age: 58 Years MMode/2D Measurements & Calculations IVSd: 2.12 cm LVIDs: 3.9 cm LVIDd: 4.0 cm LVPWd: 2.41 cm LAV (MOD-bp): 54.0 ml ACS: 1.99 cm Ao root diam: 2.9 cm LVOT diam: 2.24 cm LA dimension: 3.8 cm Doppler Measurements & Calculations MV E max huber: 56.8 cm/sec Med E/e': 7.8 MV A max huber: 68.6 cm/sec Med Peak E' Huber: 7.3 cm/sec MV E/A: 0.83 Lat E/e': 7.6 Lat Peak E' Huber: 7.5 cm/sec Ao max P.8 mmHg BENITA(I,D): 3.1 cm Ao mean P.31 mmHg LV V1 mean: 50.3 cm/sec Ao V2 max: 109.9 cm/sec LV V1 mean P.30 mmHg TR max huber: 214.5 cm/sec TR max P.4 mmHg Left Ventricle The left ventricular size, thickness and function are normal. Ejection Fraction = 57%. Right Ventricle The right ventricle is normal in size and function. Atria Normal left and right atrial size and function. Mitral Valve The mitral valve is normal in structure and function. Tricuspid Valve The tricuspid valve is normal in structure and function. Mild TR, PASP 24 mmHG. Aortic Valve The aortic valve is normal in structure and function. Pulmonic Valve The pulmonic valve is normal in structure and function. Great Vessels The aortic root is normal size. Pericardium/Pleura There is no pericardial effusion. Tech Comments TDS due to body habitus. Summary Statements The left ventricular size, thickness and function are normal The right ventricle is normal in size and function. Normal left and right atrial size and function. The mitral valve is normal in structure and function. The tricuspid valve is normal in structure and function. The aortic valve is normal in structure and function. Ejection Fraction = 57%. Mild TR, PASP 24 mmHG MD Dylon Vázquez 10/30/2019, 5:36 PM Ordering Physician: Lou Yoo Referring Physician: LOU HUDSON Performed By: Chichi Cardozo
[2019-10-30] MEDS ORDERED: APIXABAN 2.5 MG TABLET ONE (21:15)
[2019-10-30] MEDS ORDERED: ATORVASTATIN CA 10 MG TABLET (FP) ONE (21:15)
[2019-10-30] MEDS: ATORVASTATIN CA 10 MG TABLET (FP) PO SCH (21:35)
[2019-10-31] MEDS ORDERED: ACETAMINOPHEN 1000 MG/100 ML VIAL (NON FORMULARY) IVPB ONE (05:17)
[2019-10-31 07:46] LABS: BASO % 0.1 % (0-2.0); EOS % 0.1 % (0-4.5); HEMATOCRIT 44.5 % (35.4-49); HEMOGLOBIN 14.7 GM/dL (11.7-16.9); LYMPH % 14.7 % (8-40); MCH 28.2 pg (25.7-33.7); MCHC 33.1 g/dl (32.0-35.9); MEAN PLT VOLUME 8.8 fl (7.5-11.1); MONO % 7.3 % (3.8-10.2); NEUT % 77.8 % (42.8-82.8); PLATELET COUNT 132 K/MM3 (134-434); RBC 5.24 M/mm3 (4.00-5.60); RDW 14.1 % (11.9-15.9); WHITE BLOOD COUNT 8.1 K/mm3 (4.0-10.0)
[2019-10-31 08:08] LABS: ALBUMIN 3.2 g/dl (3.4-5.0); BILIRUBIN,TOTAL 0.6 mg/dL (0.2-1); BLOOD UREA NITROGEN 18.5 mg/dL (7-18); CALCIUM 8.3 mg/dL (8.5-10.1); MAGNESIUM 2.2 mg/dL (1.8-2.4); POTASSIUM 3.4 mmol/L (3.5-5.1); TOT PROT 6.2 g/dl (6.4-8.2)
[2019-10-31 08:09] LABS: CREATININE 0.9 mg/dL (0.55-1.3)
--- NOTE | 2019-10-31 08:12 | PN ---
Teaching Attending Note Name of Resident: Anabel Yoo ATTENDING PHYSICIAN STATEMENT I saw and evaluated the patient. I reviewed the resident's note and discussed the case with the resident. I agree with the resident's findings and plan as documented. SUBJECTIVE: Patient remained afebrile saturating well on room air OBJECTIVE: Vital Signs Temperature 98.7 F 10/31/19 05:00 Pulse Rate 89 10/31/19 05:00 Respiratory Rate 17 10/31/19 05:00 Blood Pressure 146/63 10/31/19 05:00 O2 Sat by Pulse Oximetry (%) 92 L 10/31/19 05:00 General: Elderly man, comfortable, not in distress HEENT mucous membranes moist, no anemia, no jaundice, PERRLA, no nystagmus Neck: No JVD, supple, no bruit, thyroid palpably normal, normal carotid pulsations. Chest: Nontender, bilateral minimal basal rales. CVS: S1-S2 regular no murmur/gallop/rub Abdomen: Nondistended, soft, bowel sounds present. Extremities: No edema., No Calf tenderness, pulses present HEALTHC[employer] ADMINISTRATION INTERN: AO X3 , no gross motor sensory deficit CBC, BMP 10/31/19 06:55 10/31/19 06:55 CRP: 1.4 Ferritin: 445 D-dimer: 630 LDH: 197 COVID-19 PCR: Pending Echocardiogram EF 57% Active Medications Acetaminophen (Tylenol -) 650 mg PO Q6H PRN PRN Reason: FEVER Last Admin: 10/30/19 10:18 Dose: 650 mg Documented by: Albuterol Sulfate (Ventolin Hfa Inhaler -) 2 puff IH Q6H PRN PRN Reason: SHORT OF BREATH/WHEEZING Apixaban (Eliquis -) 2.5 mg PO BID [facility] Last Admin: 10/30/19 21:35 Dose: 2.5 mg Documented by: Atorvastatin Calcium (Lipitor -) 10 mg PO HS [facility] Last Admin: 10/30/19 21:35 Dose: 10 mg Documented by: Carvedilol (Coreg -) 12.5 mg PO BID [facility] Last Admin: 10/30/19 21:35 Dose: 12.5 mg Documented by: Ceftriaxone Sodium 1 gm/ (Dextrose) 50 mls @ 200 mls/hr IVPB DAILY [facility]; Protocol Azithromycin 500 mg/ Dextrose 250 mls @ 250 mls/hr IVPB DAILY [facility] Lisinopril (Prinivil) 5 mg PO DAILY [facility] Last Admin: 10/30/19 09:03 Dose: 5 mg Documented by: Multivitamins/Minerals/Vitamin C (Tab-A-Vit -) 1 tab PO DAILY [facility] Last Admin: 10/30/19 09:03 Dose: 1 tab Documented by: Zinc Sulfate (Orazinc -) 220 mg PO DAILY [facility] Last Admin: 10/30/19 09:03 Dose: 220 mg Documented by: ASSESSMENT AND PLAN: 58-year-old man history of nonischemic cardiomyopathy diagnosed 10 years ago underwent cardiac catheterization, stable ejection fraction 37% last echo was 3 years ago, follow-up at [facility], 4 pillows orthopnea stable, no PND, stage C, NYHA class 1 , no recent worsening shortnes s of breath, came back from [place] on last , 2 days ago developed dry cough with low-grade fever and shortness of breath came to ED for evaluation normal CBC, chest x-ray shows bilateral patchy infiltrate Active issues: 1. Hypoxic respiratory failure:, patient present with fever with cough and shortness of breath recent traveling from [facility], considering imaging finding, mildly elevated D-dimers, LDH, and ferritin will rule out COVID-19 pneumonia, possibility of community-acquired pneumonia on empiric ceftriaxone and azithromycin, hypoxemia improved, urine Legionella negative, patient remained afebrile overnight, patient inflammatory marker are trending normal follow-up pending blood culture, meantime will continue high intensity DVT prophylaxis. 2. Heart failure with improved ejection fraction: Last EF was 37%, 2 years ago, yesterday echo shows EF of 57% no clinical sign of decompensated heart failure we will continue home medications 3. Pulmonary nodule and lymphadenopathy: Patient has a right-sided lymph paratracheal lymph node 2.6 x1.6 with right middle lobe pulmonary nodule history of smoking and mild COPD changes will follow-up with pulmonary meantime continue albuterol as needed. 4. Morbid obesity nutrition consult and weight management as an outpatient. Case discussed with resident.
[2019-10-31] MEDS ORDERED: POTASSIUM CHLORIDE TABS 20 MEQ TABLET.ER (FP) PO ONE ×2 (08:14→09:36)
[2019-10-31] MEDS ORDERED: guaiFENesin 200 MG/10 ML 10 ML UNIT-DOSE CUPS PO PRN (08:14)
[2019-10-31] MEDS ORDERED: APIXABAN 2.5 MG TABLET PO SCH (08:38)
[2019-10-31] MEDS ORDERED: MULTIVITAMINS (DAILY MVI) TABLET (FP) ONE (09:36)
[2019-10-31] MEDS ORDERED: APIXABAN 2.5 MG TABLET ONE (09:36)
[2019-10-31] MEDS ORDERED: LISINOPRIL 5 MG TABLET (FP) ONE (09:37)
[2019-10-31] MEDS ORDERED: ZINC SULFATE 220 MG CAPSULE (FP) ONE (09:37)
[2019-10-31] MEDS ORDERED: CEFTRIAXONE 1 GM/50 ML BAG ONE (09:37)
[2019-10-31] MEDS ORDERED: AZITHROMYCIN IVPB 500 MG/250 ML BAG IVPB ONE (09:37)
[2019-10-31] MEDS ORDERED: CARVEDILOL 3.125 MG TABLET (FP) ONE (09:38)
[2019-10-31] MEDS: LISINOPRIL 5 MG TABLET (FP) PO SCH (09:46)
[2019-10-31] MEDS: CEFTRIAXONE 1 GM in DEXTROSE 5%-WATER - 50 ML IVPB SCH (09:46)
[2019-10-31] MEDS: CARVEDILOL 12.5 MG TABLET (FP) PO SCH ×2 (09:46→21:29)
[2019-10-31] MEDS: MULTIVITAMINS (DAILY MVI) TABLET (FP) PO SCH (09:46)
[2019-10-31] MEDS: APIXABAN 2.5 MG TABLET PO SCH ×2 (09:46→21:29)
[2019-10-31] MEDS: ZINC SULFATE 220 MG CAPSULE (FP) PO SCH (09:46)
[2019-10-31] MEDS: AZITHROMYCIN IVPB 500 MG in DEXTROSE 5%-WATER - 250 ML IVPB SCH (10:04)
--- NOTE | 2019-10-31 11:25 | PN ---
Progress Note (short form) - Note Progress Note: Generalized fatigue and malaise. NAD on RA. No CP. No acute events overnight. Intake & Output 10/28/19 10/29/19 10/30/19 10/31/19 23:59 23:59 23:59 23:59 Intake Total 500 Balance 500 Weight 300 lb Last Vital Signs Temp Pulse Resp BP Pulse Ox 98.7 F 89 17 146/63 92 L 10/31/19 05:00 10/31/19 05:00 10/31/19 05:00 10/31/19 05:00 10/31/19 05:00 Active Medications Acetaminophen (Tylenol -) 650 mg PO Q6H PRN PRN Reason: FEVER Last Admin: 10/30/19 10:18 Dose: 650 mg Documented by: Albuterol Sulfate (Ventolin Hfa Inhaler -) 2 puff IH Q6H PRN PRN Reason: SHORT OF BREATH/WHEEZING Apixaban (Eliquis -) 2.5 mg PO BID [facility] Last Admin: 10/31/19 09:46 Dose: 2.5 mg Documented by: Atorvastatin Calcium (Lipitor -) 10 mg PO HS [facility] Last Admin: 10/30/19 21:35 Dose: 10 mg Documented by: Carvedilol (Coreg -) 12.5 mg PO BID [facility] Last Admin: 10/31/19 09:46 Dose: 12.5 mg Documented by: Guaifenesin (Robitussin -) 10 ml PO Q6H PRN PRN Reason: COUGH Ceftriaxone Sodium 1 gm/ (Dextrose) 50 mls @ 200 mls/hr IVPB DAILY [facility]; Protocol Last Admin: 10/31/19 09:46 Dose: 200 mls/hr Documented by: Azithromycin 500 mg/ Dextrose 250 mls @ 250 mls/hr IVPB DAILY [facility] Last Admin: 10/31/19 10:04 Dose: 250 mls/hr Documented by: Insulin Aspart (Novolog Vial Sliding Scale -) 1 vial SQ TIDAC [facility]; Protocol Lisinopril (Prinivil) 5 mg PO DAILY [facility] Last Admin: 10/31/19 09:46 Dose: 5 mg Documented by: Multivitamins/Minerals/Vitamin C (Tab-A-Vit -) 1 tab PO DAILY [facility] Last Admin: 10/31/19 09:46 Dose: 1 tab Documented by: Zinc Sulfate (Orazinc -) 220 mg PO DAILY [facility] Last Admin: 10/31/19 09:46 Dose: 220 mg Documented by: Constitutional: Yes: NAD Eyes: Yes: Conjunctiva Clear, EOM Intact HENT: Yes: Atraumatic, Normocephalic Neck: Yes: Supple, Trachea Midline Cardiovascular: Yes: Regular Rate and Rhythm Respiratory: Yes: Diminished breath sounds at the bases ...Clubbing: No Gastrointestinal: Yes: Normal Bowel Sounds, Soft. No: Tenderness Edema: No Neurological: Yes: Alert, Oriented Labs: Intake & Output 10/28/19 10/29/19 10/30/19 10/31/19 23:59 23:59 23:59 23:59 Intake Total 500 Balance 500 Weight 300 lb Imaging - Results Chest X-ray: Report Reviewed, Image Reviewed Cat Scan: Report Reviewed, Image Reviewed (scattered peripheral ground glass opacities) Problem List - Problems (1) Suspected 2018 novel coronavirus infection Code(s): Z20.828 - CONTACT W AND EXPOSURE TO OTH VIRAL COMMUNICABLE DISEASES Assessment/Plan Suspected COVID19 Cardiomyopathy Thrombocytopenia - f/u COVID19 testing : If (+) would offer Convalescent Plasma - O2 to keep SpO2 >90% - trend ferritin, LDH, CRP - on empiric antibiotics - on empiric anticoagulation - Low inflammatory markers do not support a benefit from systemic steroids Dr Mcleod
[2019-10-31] MEDS: INSULIN SLIDING SCALE (NOVOLOG) 1 VIAL SQ SCH ×2 (11:41→18:27)
[2019-10-31] MEDS ORDERED: INSULIN SLIDING SCALE (NOVOLOG) 1 VIAL SQ ONE (11:43)
--- NOTE | 2019-10-31 12:36 | PN ---
Progress Note (short form) - Note Progress Note: no fevers malaise rare cough notes fatigue Vital Signs Period Temp Pulse Resp BP Sys/Ortega Pulse Ox Last 24 Hr 98.0 F-98.7 F 68-89 17-18 119-146/60-63 92-94 cor-rrr lungs decreased bs at bases abd soft,nt ext no edema CBC, BMP 10/31/19 06:55 10/31/19 06:55 Microbiology 10/30/19 08:50 Blood - Peripheral Venous Blood Culture - Preliminary NO GROWTH OBTAINED AFTER 24 HOURS, INCUBATION TO CONTINUE FOR 4 DAYS. 10/30/19 08:20 Blood - Peripheral Venous Blood Culture - Preliminary NO GROWTH OBTAINED AFTER 24 HOURS, INCUBATION TO CONTINUE FOR 4 DAYS. 10/30/19 07:45 Urine - Urine Clean Catch Urine Culture - Preliminary 10/30/19 07:45 Urine For Antigen Detection Legionella Antigen - Final 10/30/19 07:45 Urine For Antigen Detection Streptococcus pneumoniae Antigen (M - Final covid pcr still pending a/p pneumonia suspected covid 19 disease in traveler from [place] awaiting pcr continue isolation continue johnepizabella/clemente obesity and history of cardiomyopathy make him at high risk for covid 19 - would observe in hospital for now polycythemia- resolved Problem List - Problems (1) Pneumonia Code(s): J18.9 - PNEUMONIA, UNSPECIFIED ORGANISM (2) Suspected 2019 novel coronavirus infection Code(s): Z20.828 - CONTACT W AND EXPOSURE TO OTH VIRAL COMMUNICABLE DISEASES (3) Polycythemia Code(s): D75.1 - SECONDARY POLYCYTHEMIA
[2019-10-31] MEDS ORDERED: guaiFENesin 200 MG/10 ML 10 ML UNIT-DOSE CUPS ONE (15:59)
[2019-10-31] MEDS ORDERED: ALBUTEROL SO4 HFA INHALER IH ONE (15:59)
--- NOTE | 2019-10-31 16:06 | PN ---
Physical Exam: SUBJECTIVE: Patient seen and examined OBJECTIVE: Vital Signs Temperature 98.7 F 10/31/19 05:00 Pulse Rate 89 10/31/19 05:00 Respiratory Rate 17 10/31/19 05:00 Blood Pressure 146/63 10/31/19 05:00 O2 Sat by Pulse Oximetry (%) 92 L 10/31/19 05:00 GENERAL: The patient is awake, alert, and fully oriented, in no acute distress. NECK: supple. LUNGS: decreased breath sounds on bilateral bases HEART: Regular rate and rhythm, S1, S2 without murmur ABDOMEN: Soft, nontender, nondistended, normoactive bowel sounds EXTREMITIES: 2+ pulses, warm, well-perfused, no edema. NEUROLOGICAL: Cranial nerves II through XII grossly intact. Normal speech PSYCH: Normal mood, normal affect. SKIN: Warm, dry, normal turgor Laboratory Results - last 24 hr 10/30/19 10/30/19 10/31/19 17:22 21:20 06:47 WBC RBC Hgb Hct MCV MCH MCHC RDW Plt Count MPV Absolute Neuts (auto) Neutrophils % Lymphocytes % Monocytes % Eosinophils % Basophils % Nucleated RBC % D-Dimer Sodium Potassium Chloride Carbon Dioxide Anion Gap BUN Creatinine Est GFR (CKD-EPI)AfAm Est GFR (CKD-EPI)NonAf POC Glucometer 329 297 285 Random Glucose Calcium Magnesium Ferritin Total Bilirubin AST ALT Alkaline Phosphatase LD Total C-Reactive Protein Total Protein Albumin 10/31/19 10/31/19 10/31/19 06:55 06:55 06:55 WBC 8.1 RBC 5.24 Hgb 14.7 Hct 44.5 MCV 85.0 MCH 28.2 MCHC 33.1 RDW 14.1 Plt Count 132 L MPV 8.8 Absolute Neuts (auto) 6.3 Neutrophils % 77.8 Lymphocytes % 14.7 D Monocytes % 7.3 Eosinophils % 0.1 Basophils % 0.1 Nucleated RBC % 0 D-Dimer 630 H Sodium 135 L Potassium 3.4 L Chloride 102 Carbon Dioxide 24 Anion Gap 9 BUN 18.5 H Creatinine 0.9 Est GFR (CKD-EPI)AfAm 108.73 Est GFR (CKD-EPI)NonAf 93.82 POC Glucometer Random Glucose 278 H Calcium 8.3 L Magnesium 2.2 Ferritin 445.0 H Total Bilirubin 0.6 AST 24 ALT 37 Alkaline Phosphatase 83 LD Total 197 C-Reactive Protein 1.4 H Total Protein 6.2 L Albumin 3.2 L 10/31/19 11:15 WBC RBC Hgb Hct MCV MCH MCHC RDW Plt Count MPV Absolute Neuts (auto) Neutrophils % Lymphocytes % Monocytes % Eosinophils % Basophils % Nucleated RBC % D-Dimer Sodium Potassium Chloride Carbon Dioxide Anion Gap BUN Creatinine Est GFR (CKD-EPI)AfAm Est GFR (CKD-EPI)NonAf POC Glucometer 333 Random Glucose Calcium Magnesium Ferritin Total Bilirubin AST ALT Alkaline Phosphatase LD Total C-Reactive Protein Total Protein Albumin Active Medications Generic Name Dose Route Start Last Admin Trade Name Freq PRN Reason Stop Dose Admin Acetaminophen 650 mg 10/30/19 06:00 10/30/19 10:18 Tylenol - PO 650 mg Q6H PRN Administration FEVER Albuterol Sulfate 2 puff 10/30/19 04:43 Ventolin Hfa Inhaler - IH Q6H PRN SHORT OF BREATH/WHEEZING Apixaban 2.5 mg 10/31/19 10:00 10/31/19 09:46 Eliquis - PO 2.5 mg BID KUMAR Administration Atorvastatin Calcium 10 mg 10/30/19 22:00 10/30/19 21:35 Lipitor - PO 10 mg HS KUMAR Administration Carvedilol 12.5 mg 10/30/19 10:00 10/31/19 09:46 Coreg - PO 12.5 mg BID KUMAR Administration Guaifenesin 10 ml 10/31/19 08:14 Robitussin - PO Q6H PRN COUGH Ceftriaxone Sodium 1 gm/ 50 mls @ 200 mls/hr 10/31/19 10:00 10/31/19 09:46 Dextrose IVPB 200 mls/hr DAILY KUMAR Administration Protocol Azithromycin 500 mg/ Dextrose 250 mls @ 250 mls/hr 10/31/19 10:00 10/31/19 10:04 IVPB 250 mls/hr DAILY KUMAR Administration Insulin Aspart 1 vial 10/31/19 11:00 10/31/19 11:41 Novolog Vial Sliding Scale - SQ 8 units TIDAC KUMAR Administration Protocol Lisinopril 5 mg 10/30/19 10:00 10/31/19 09:46 Prinivil PO 5 mg DAILY KUMAR Administration Multivitamins/Minerals/Vitamin C 1 tab 10/30/19 10:00 10/31/19 09:46 Tab-A-Vit - PO 1 tab DAILY KUMAR Administration Zinc Sulfate 220 mg 10/30/19 10:00 10/31/19 09:46 Orazinc - PO 220 mg DAILY KUMAR Administration ASSESSMENT/PLAN: Patient is a 58 y/o male with a PMHx of Cardiomyopathy of unknown origin. Who presents to the ED with subjective fever 99.5, increased SOB, myalgias. loss of appetite x3 days. Patient reports recent travel between [place] and [place] x 5 weeks. #Sepsis -2/2 pneumonia, r/o COVID -Chest CTA - No gross evidence of PE. Large right paratracheal lymph node that contains a fatty hilum, nonspecific. Mild emphysematous/COPD changes with peripheral reticulonodular pattern mainly in the lower lung, posteriorly likely chronic. Cannot rule out superimposed infiltrates. -Continue IV Ceftriaxone and Azithromycin day 3 -Eliquis 2mg bid for ppx -Covid pending -Blood cultures, urine legionella/pneumonia pending -ID (Dr. Al) consulted. REcommendations appreciated. #Acute respiratory distress -probably 2/2 pneumonia, r/o covid given recent travel from [place] -supplemental O2 as needed to keep SpO2 >95% -urine legionella/pneumonia ordered -covid pending -ESR/CRP, Ferritin, LDH trending down -on IV Ceftriaxone and Azithromycin -Pulm (Dr. Hernandez) consulted. Recommendations appreciated. #HFrEF -stable, no signs of acute exacerbation -last EF reported by patient to be 37% -Hx of nonischemic cardiomyopathy -BNP 175 -echo done, EF 57% -Continue Lisinopril 5mg daily and Coreg 12.5mg bid #Pulmonary nodule -Chest CT - 7x8mm pulmonary nodule RML, anteriorly abutting the fissure which is nonspecific -follow up CT scan of the chest in 3-6 months is needed for further evaluation. -will refer to outpatient pulmonology. #FEN -Not on any standing fluids -Electrolytes wnl, routine bmp monitoring -Diabetic diet #Prophylaxis -Eliquis 2.5mg bid #Disposition -full code -tele Visit type - Emergency Visit Emergency Visit: Yes ED Registration Date: 10/30/19 Care time: The patient presented to the Emergency Department on the above date and was hospitalized for further evaluation of their emergent condition. - New Patient This patient is new to me today: No - Critical Care Critical Care patient: No ATTENDING PHYSICIAN STATEMENT I saw and evaluated the patient. I reviewed the resident's note and discussed the case with the resident. I agree with the resident's findings and plan as documented. SUBJECTIVE: OBJECTIVE: ASSESSMENT AND PLAN:
[2019-10-31] MEDS: ATORVASTATIN CA 10 MG TABLET (FP) PO SCH (21:29)
[2019-11-01] MEDS: INSULIN SLIDING SCALE (NOVOLOG) 1 VIAL SQ SCH ×3 (06:15→17:02)
--- NOTE | 2019-11-01 07:56 | PN ---
Progress Note, Physician History of Present Illness: PULMONARY ALERT,C/O HU,+DESATURATES TO 86% ON RA WITH AMBULATION - Current Medication List Current Medications: Active Medications Acetaminophen (Tylenol -) 650 mg PO Q6H PRN PRN Reason: FEVER Last Admin: 10/30/19 10:18 Dose: 650 mg Documented by: Albuterol Sulfate (Ventolin Hfa Inhaler -) 2 puff IH Q6H PRN PRN Reason: SHORT OF BREATH/WHEEZING Apixaban (Eliquis -) 2.5 mg PO BID REPLACED BY [facility] Last Admin: 10/31/19 21:29 Dose: 2.5 mg Documented by: Atorvastatin Calcium (Lipitor -) 10 mg PO HS REPLACED BY [facility] Last Admin: 10/31/19 21:29 Dose: 10 mg Documented by: Carvedilol (Coreg -) 12.5 mg PO BID REPLACED BY [facility] Last Admin: 10/31/19 21:29 Dose: 12.5 mg Documented by: Guaifenesin (Robitussin -) 10 ml PO Q6H PRN PRN Reason: COUGH Ceftriaxone Sodium 1 gm/ (Dextrose) 50 mls @ 200 mls/hr IVPB DAILY REPLACED BY [facility]; Protocol Last Admin: 10/31/19 09:46 Dose: 200 mls/hr Documented by: Azithromycin 500 mg/ Dextrose 250 mls @ 250 mls/hr IVPB DAILY REPLACED BY [facility] Last Admin: 10/31/19 10:04 Dose: 250 mls/hr Documented by: Insulin Aspart (Novolog Vial Sliding Scale -) 1 vial SQ TIDAC REPLACED BY [facility]; Protocol Last Admin: 11/01/19 06:15 Dose: 4 units Documented by: Lisinopril (Prinivil) 5 mg PO DAILY REPLACED BY [facility] Last Admin: 10/31/19 09:46 Dose: 5 mg Documented by: Multivitamins/Minerals/Vitamin C (Tab-A-Vit -) 1 tab PO DAILY REPLACED BY [facility] Last Admin: 10/31/19 09:46 Dose: 1 tab Documented by: Zinc Sulfate (Orazinc -) 220 mg PO DAILY REPLACED BY [facility] Last Admin: 10/31/19 09:46 Dose: 220 mg Documented by: - Objective Vital Signs: Vital Signs Temperature 98.3 F 11/01/19 06:00 Pulse Rate 81 11/01/19 06:00 Respiratory Rate 18 11/01/19 06:00 Blood Pressure 122/77 11/01/19 06:00 O2 Sat by Pulse Oximetry (%) 94 L 10/31/19 20:05 Constitutional: Yes: Well Nourished, Calm, Obese Eyes: Yes: WNL HENT: Yes: WNL Neck: Yes: WNL Cardiovascular: Yes: Regular Rate and Rhythm, S1, S2 Respiratory: Yes: Diminished Gastrointestinal: Yes: Normal Bowel Sounds, Soft, Abdomen, Obese Extremities: Yes: WNL Edema: No Labs: CBC, BMP 10/31/19 06:55 10/31/19 06:55 INR, PTT INR 1.10 (0.83-1.09) H 10/30/19 00:00 Laboratory Tests 10/29/19 11/01/19 22:40 10:16 Ferritin 431.6 H C-Reactive Protein 5.9 H COVID-19 (LIS) Detected H Problem List - Problems (1) COVID-19 Code(s): U07.1 - COVID POSITIVE (2) Cardiomyopathy Code(s): I42.9 - CARDIOMYOPATHY, UNSPECIFIED (3) Pneumonia Code(s): J18.9 - PNEUMONIA, UNSPECIFIED ORGANISM (4) Hypoxemia Code(s): R09.02 - HYPOXEMIA (5) Shortness of breath Code(s): R06.02 - SHORTNESS OF BREATH Assessment/Plan Problem List - Problems (1) Suspected 2019 novel coronavirus infection Code(s): Z20.828 - CONTACT W AND EXPOSURE TO OTH VIRAL COMMUNICABLE DISEASES Assessment/Plan COVID19 Cardiomyopathy Thrombocytopenia - f/u COVID19 testing : If (+) would offer Convalescent Plasma - O2 to keep SpO2 >90% - trend ferritin, LDH, CRP - on empiric antibiotics - Eliquis 5 bid - inflammatory markers increasing will start steroids - Remdesivir DR HAGER
[2019-11-01] MEDS ORDERED: PT OWN MED DRAWER 7, Y5N ONE (10:45)
[2019-11-01] MEDS ORDERED: cefTRIAXone SODIUM 1 GM VIAL ONE (10:45)
[2019-11-01] MEDS ORDERED: DEXTROSE 5%-WATER - 50 ML IVPB ONE (10:45)
[2019-11-01] MEDS: CEFTRIAXONE 1 GM in DEXTROSE 5%-WATER - 50 ML IVPB SCH (10:49)
[2019-11-01] MEDS: CARVEDILOL 12.5 MG TABLET (FP) PO SCH ×2 (10:49→21:22)
[2019-11-01] MEDS: MULTIVITAMINS (DAILY MVI) TABLET (FP) PO SCH (10:49)
[2019-11-01] MEDS: ZINC SULFATE 220 MG CAPSULE (FP) PO SCH (10:49)
[2019-11-01] MEDS: APIXABAN 2.5 MG TABLET PO SCH (10:49)
[2019-11-01] MEDS: LISINOPRIL 5 MG TABLET (FP) PO SCH (10:49)
[2019-11-01 10:59] LABS: BASO % 0.3 % (0-2.0); EOS % 0.6 % (0-4.5); HEMATOCRIT 42.4 % (35.4-49); HEMOGLOBIN 14.4 GM/dL (11.7-16.9); MCH 28.9 pg (25.7-33.7); MCHC 33.9 g/dl (32.0-35.9); MEAN CELL VOLUME 85.4 fl (80-96); MEAN PLT VOLUME 9.1 fl (7.5-11.1); MONO % 10.1 % (3.8-10.2); PLATELET COUNT 138 K/MM3 (134-434); RBC 4.97 M/mm3 (4.00-5.60); RDW 14.2 % (11.9-15.9); WHITE BLOOD COUNT 4.9 K/mm3 (4.0-10.0)
[2019-11-01] MEDS: ACETAMINOPHEN 325 MG TABLET (FP) PO PRN (11:03)
[2019-11-01] MEDS ORDERED: AZITHROMYCIN IVPB 500 MG/250 ML BAG IVPB SCH (11:15)
[2019-11-01 11:24] LABS: BILIRUBIN,TOTAL 0.6 mg/dL (0.2-1); BLOOD UREA NITROGEN 11.6 mg/dL (7-18); CALCIUM 8.4 mg/dL (8.5-10.1); CREATININE 0.8 mg/dL (0.55-1.3); MAGNESIUM 2.3 mg/dL (1.8-2.4); POTASSIUM 3.4 mmol/L (3.5-5.1); TOT PROT 5.9 g/dl (6.4-8.2)
[2019-11-01] MEDS ORDERED: POTASSIUM CHLORIDE TABS 10 MEQ TABLET.ER (FP) PO ONE (11:30)
--- NOTE | 2019-11-01 11:41 | PN ---
Teaching Attending Note Name of Resident: Anabel Yoo ATTENDING PHYSICIAN STATEMENT I saw and evaluated the patient. I reviewed the resident's note and discussed the case with the resident. I agree with the resident's findings and plan as documented. SUBJECTIVE: Patient feeling less shortness of breath, but complaint of dyspnea on exertion OBJECTIVE: Vital Signs Temperature 98.3 F 11/01/19 06:00 Pulse Rate 81 11/01/19 06:00 Respiratory Rate 18 11/01/19 06:00 Blood Pressure 122/77 11/01/19 06:00 O2 Sat by Pulse Oximetry (%) 94 L 10/31/19 20:05 General: Middle-aged man, comfortable, not in distress HEENT mucous membranes moist, no anemia, no jaundice, PERRLA, no nystagmus Neck: No JVD, supple, no bruit, thyroid palpably normal, normal carotid pulsations. Chest: Nontender, bilateral minimal basal rales. CVS: S1-S2 regular no murmur/gallop/rub Abdomen: Nondistended, soft, bowel sounds present. Extremities: No edema., No Calf tenderness, pulses present [employer]: AO X3 , no gross motor sensory deficit CBC, BMP 11/01/19 10:16 11/01/19 10:16 CRP: 5.9 Ferritin: 431 D-dimer: 452 LDH: 195 COVID-19 PCR: Positive Hemoglobin A1c: 9.4 Echocardiogram EF 57% Active Medications Acetaminophen (Tylenol -) 650 mg PO Q6H PRN PRN Reason: FEVER Last Admin: 11/01/19 11:03 Dose: 650 mg Documented by: Albuterol Sulfate (Ventolin Hfa Inhaler -) 2 puff IH Q6H PRN PRN Reason: SHORT OF BREATH/WHEEZING Apixaban (Eliquis -) 2.5 mg PO BID [facility] Last Admin: 11/01/19 10:49 Dose: 2.5 mg Documented by: Atorvastatin Calcium (Lipitor -) 10 mg PO HS [facility] Last Admin: 10/31/19 21:29 Dose: 10 mg Documented by: Carvedilol (Coreg -) 12.5 mg PO BID [facility] Last Admin: 11/01/19 10:49 Dose: 12.5 mg Documented by: Guaifenesin (Robitussin -) 10 ml PO Q6H PRN PRN Reason: COUGH Insulin Aspart (Novolog Vial Sliding Scale -) 1 vial SQ TIDAC [facility]; Protocol Last Admin: 11/01/19 11:04 Dose: 6 units Documented by: Insulin Detemir (Levemir Vial) 10 units SQ [facility] Lisinopril (Prinivil) 5 mg PO DAILY [facility] Last Admin: 11/01/19 10:49 Dose: 5 mg Documented by: Multivitamins/Minerals/Vitamin C (Tab-A-Vit -) 1 tab PO DAILY [facility] Last Admin: 11/01/19 10:49 Dose: 1 tab Documented by: Zinc Sulfate (Orazinc -) 220 mg PO DAILY [facility] Last Admin: 11/01/19 10:49 Dose: 220 mg Documented by: ASSESSMENT AND PLAN: 58-year-old man history of nonischemic cardiomyopathy diagnosed 10 years ago underwent cardiac catheterization, stable ejection fraction 37% last echo was 3 years ago, follow-up at [facility]/[place], 4 pillows orthopnea stable, no PND, stage C, NYHA class 1 , no recent worsening shortness of breath, came back from [place] on last , 2 days ago developed dry cough with low-grade fever and shortness of breath came to ED for evaluation normal CBC, chest x-ray shows bilateral patchy infiltrate Active issues: 1. Hypoxic respiratory failure:, patient present with fever with cough and tracey rtness of breath recent traveling from [facility], considering imaging finding, COVID-19 PCR positive mildly, patient remained afebrile but feels dyspnea on exertion desats to 89% while in the toilet, CRP is 5.9 other inflammatory markers are trending down, ID input appreciated considering 7 days since symptoms and persistent hypoxia ID recommended REMDESIVIR , consider early course of treatment patient can get benefit, urine Legionella negative, urine strep negative, DC antibiotic, continue high intensity DVT prophylaxis. Incentive spirometry, pounding and pulmonary exercise 2. Heart failure with improved ejection fraction: Last EF was 37%, 2 years ago, yesterday echo shows EF of 57% no clinical sign of decompensated heart failure we will continue home medications 3. Pulmonary nodule and lymphadenopathy: Patient has a right-sided lymph paratracheal lymph node 2.6 x1.6 with right middle lobe pulmonary nodule history of smoking and mild COPD changes will follow-up with pulmonary meantime continue albuterol as needed. 4. Morbid obesity nutrition consult and weight management as an outpatient. 5. Type 2 diabetes mellitus; patient is new onset type 2 diabetes mellitus finishing a percent more than 200, will add low-dose basal insulin Levemir 10 units at at bedtime continue correction dose insulin, diabetic diet. 6. Hypokalemia: Repleted Case discussed with ID attending and resident.
[2019-11-01] MEDS ORDERED: POTASSIUM CHLORIDE ORAL LIQUID 20 MEQ/15 ML PO ONE (11:42)
--- NOTE | 2019-11-01 11:44 | PN ---
Progress Note (short form) - Note Progress Note: continued cough covid pcr positive desat to 86% ambulating to Bathroom oygen sat at rest on RA 92% malaise Vital Signs Period Temp Pulse Resp BP Sys/Ortega Pulse Ox Last 24 Hr 98.3 F-99.4 F 81-99 18-20 120-132/59-82 94-94 cor-rrr lungs scattered rhonchi abd soft,nt ext no edema CBC, BMP 11/01/19 10:16 11/01/19 10:16 Microbiology 10/30/19 07:45 Urine - Urine Clean Catch Urine Culture - Final Normal Urogenital Charlene 10/30/19 08:50 Blood - Peripheral Venous Blood Culture - Preliminary NO GROWTH OBTAINED AFTER 48 HOURS, INCUBATION TO CONTINUE FOR 3 DAYS. 10/30/19 08:20 Blood - Peripheral Venous Blood Culture - Preliminary NO GROWTH OBTAINED AFTER 48 HOURS, INCUBATION TO CONTINUE FOR 3 DAYS. 10/30/19 07:45 Urine For Antigen Detection Legionella Antigen - Final 10/30/19 07:45 Urine For Antigen Detection Streptococcus pneumoniae Antigen (M - Final a/p covid 19 pneumonia-hypoxia noted- d/w patient options of remdesivir and convalescent plasma reccd he start treatment with remdesivir to prevent further hypoxia- renal funciton and lfts WNL he will let me know continue isolation d/c rocephin/zith obesity and history of cardiomyopathy make him at high risk for covid 19 - would observe in hospital for now Problem List - Problems (1) Pneumonia Code(s): J18.9 - PNEUMONIA, UNSPECIFIED ORGANISM (2) Suspected 2019 novel coronavirus infection Code(s): Z20.828 - CONTACT W AND EXPOSURE TO [facility] VIRAL COMMUNICABLE DISEASES (3) Polycythemia Code(s): D75.1 - SECONDARY POLYCYTHEMIA
[2019-11-01] MEDS: AZITHROMYCIN IVPB 500 MG in DEXTROSE 5%-WATER - 250 ML IVPB SCH (13:17)
[2019-11-01] MEDS ORDERED: POTASSIUM CHLORIDE TABS 20 MEQ TABLET.ER (FP) PO ONE (14:00)
--- NOTE | 2019-11-01 14:55 | PN ---
Physical Exam: SUBJECTIVE: Patient seen and examined OBJECTIVE: Vital Signs Temperature 97.6 F 11/01/19 11:00 Pulse Rate 89 11/01/19 11:00 Respiratory Rate 18 11/01/19 11:00 Blood Pressure 109/70 11/01/19 11:00 O2 Sat by Pulse Oximetry (%) 94 L 10/31/19 20:05 GENERAL: The patient is awake, alert, and fully oriented, in no acute distress. NECK: supple. LUNGS: decreased breath sounds on bilateral bases HEART: Regular rate and rhythm, S1, S2 without murmur ABDOMEN: Soft, nontender, nondistended, normoactive bowel sounds EXTREMITIES: 2+ pulses, warm, well-perfused, no edema. NEUROLOGICAL: Cranial nerves II through XII grossly intact. Normal speech PSYCH: Normal mood, normal affect. SKIN: Warm, dry, normal turgor Laboratory Results - last 24 hr 10/29/19 10/31/19 11/01/19 22:40 06:55 06:12 WBC RBC Hgb Hct MCV MCH MCHC RDW Plt Count MPV Absolute Neuts (auto) Neutrophils % Lymphocytes % Monocytes % Eosinophils % Basophils % Nucleated RBC % D-Dimer Sodium Potassium Chloride Carbon Dioxide Anion Gap BUN Creatinine Est GFR (CKD-EPI)AfAm Est GFR (CKD-EPI)NonAf POC Glucometer 212 Random Glucose Hemoglobin A1c % 9.4 H Calcium Magnesium Ferritin Total Bilirubin AST ALT Alkaline Phosphatase LD Total C-Reactive Protein Total Protein Albumin COVID-19 (LIS) Detected H Blood Type 11/01/19 11/01/19 11/01/19 10:16 10:16 10:16 WBC 4.9 RBC 4.97 Hgb 14.4 Hct 42.4 MCV 85.4 MCH 28.9 MCHC 33.9 RDW 14.2 Plt Count 138 MPV 9.1 Absolute Neuts (auto) 3.1 Neutrophils % 63.0 Lymphocytes % 26.0 D Monocytes % 10.1 Eosinophils % 0.6 D Basophils % 0.3 Nucleated RBC % 0 D-Dimer 452 Sodium 137 Potassium 3.4 L Chloride 104 Carbon Dioxide 24 Anion Gap 9 BUN 11.6 Creatinine 0.8 Est GFR (CKD-EPI)AfAm 114.13 Est GFR (CKD-EPI)NonAf 98.47 POC Glucometer Random Glucose 232 H Hemoglobin A1c % Calcium 8.4 L Magnesium 2.3 Ferritin 431.6 H Total Bilirubin 0.6 AST 16 ALT 28 Alkaline Phosphatase 73 LD Total 195 C-Reactive Protein 5.9 H Total Protein 5.9 L Albumin 3.0 L COVID-19 (LIS) Blood Type 11/01/19 11/01/19 10:56 11:15 WBC RBC Hgb Hct MCV MCH MCHC RDW Plt Count MPV Absolute Neuts (auto) Neutrophils % Lymphocytes % Monocytes % Eosinophils % Basophils % Nucleated RBC % D-Dimer Sodium Potassium Chloride Carbon Dioxide Anion Gap BUN Creatinine Est GFR (CKD-EPI)AfAm Est GFR (CKD-EPI)NonAf POC Glucometer 259 Random Glucose Hemoglobin A1c % Calcium Magnesium Ferritin Total Bilirubin AST ALT Alkaline Phosphatase LD Total C-Reactive Protein Total Protein Albumin COVID-19 (LIS) Blood Type A POSITIVE Active Medications Generic Name Dose Route Start Last Admin Trade Name Freq PRN Reason Stop Dose Admin Acetaminophen 650 mg 10/30/19 06:00 11/01/19 11:03 Tylenol - PO 650 mg Q6H PRN Administration FEVER Albuterol Sulfate 2 puff 10/30/19 04:43 Ventolin Hfa Inhaler - IH Q6H PRN SHORT OF BREATH/WHEEZING Apixaban 5 mg 11/01/19 20:00 Eliquis - PO BID K[facility]AR Atorvastatin Calcium 10 mg 10/30/19 22:00 10/31/19 21:29 Lipitor - PO 10 mg HS KUMAR Administration Budesonide/Formoterol Fumarate 2 puff 11/01/19 12:00 Symbicort 160/4.5mcg - IH BID KUMAR Carvedilol 12.5 mg 10/30/19 10:00 11/01/19 10:49 Coreg - PO 12.5 mg BID KUMAR Administration Guaifenesin 10 ml 10/31/19 08:14 Robitussin - PO Q6H PRN COUGH Insulin Aspart 1 vial 10/31/19 11:00 11/01/19 11:04 Novolog Vial Sliding Scale - SQ 6 units TIDAC KUMAR Administration Protocol Insulin Detemir 10 units 11/01/19 22:00 Levemir Vial SQ HS [facility] Lisinopril 5 mg 10/30/19 10:00 11/01/19 10:49 Prinivil PO 5 mg DAILY [facility] Administration Methylprednisolone Sodium Succinate 70 mg 11/01/19 22:00 Solu-Medrol - IVPUSH BID [facility] Multivitamins/Minerals/Vitamin C 1 tab 10/30/19 10:00 11/01/19 10:49 Tab-A-Vit - PO 1 tab DAILY [facility] Administration Zinc Sulfate 220 mg 10/30/19 10:00 11/01/19 10:49 Orazinc - PO 220 mg DAILY [facility] Administration ASSESSMENT/PLAN: Patient is a 58 y/o male with a PMHx of Cardiomyopathy of unknown origin. Who presents to the ED with subjective fever 99.5, increased SOB, myalgias. loss of appetite x3 days. Patient reports recent travel between [facility] x 5 weeks. #Sepsis 2/2 COVID pneumonia -Covid detected -Chest CTA - No gross evidence of PE. Large right paratracheal lymph node that contains a fatty hilum, nonspecific. Mild emphysematous/COPD changes with peripheral reticulonodular pattern mainly in the lower lung, posteriorly likely chronic. Cannot rule out superimposed infiltrates. -Discontinue IV Ceftriaxone and Azithromycin -Eliquis 2.5mg bid for ppx -Blood cultures, urine legionella/pneumonia pending -Plan for convalescent plasma and Remdesivir -ID (Dr. Al) consulted. REcommendations appreciated. #Acute respiratory distress -probably 2/2 pneumonia, covid -supplemental O2 as needed to keep SpO2 >95% -urine legionella/pneumonia negative -ESR/CRP, Ferritin, LDH trending down -Pulm (Dr. Hernandez) consulted. Recommendations appreciated. #HFrEF -stable, no signs of acute exacerbation -last EF reported by patient to be 37% -Hx of nonischemic cardiomyopathy -BNP 175 -echo done, EF 57% -Continue Lisinopril 5mg daily and Coreg 12.5mg bid #Pulmonary nodule -Chest CT - 7x8mm pulmonary nodule RML, anteriorly abutting the fissure which is nonspecific -follow up CT scan of the chest in 3-6 months is needed for further evaluation. -will refer to outpatient pulmonology. #FEN -Not on any standing fluids -Electrolytes wnl, routine bmp monitoring -Diabetic diet #Prophylaxis -Eliquis 2.5mg bid #Disposition -full code -med surg Visit type - Emergency Visit Emergency Visit: Yes ED Registration Date: 10/30/19 Care time: The patient presented to the Emergency Department on the above date and was hospitalized for further evaluation of their emergent condition. - New Patient This patient is new to me today: No - Critical Care Critical Care patient: No ATTENDING PHYSICIAN STATEMENT I saw and evaluated the patient. I reviewed the resident's note and discussed the case with the resident. I agree with the resident's findings and plan as documented. SUBJECTIVE: OBJECTIVE: ASSESSMENT AND PLAN:
[2019-11-01] MEDS: BUDESONIDE/FORMETEROL FUMARATE 160/4.5 mcg INHALER IH SCH ×2 (15:03→21:23)
[2019-11-01] MEDS ORDERED: REMDESIVIR 200 MG in SODIUM CHLORIDE 210 ML IVPB ONE (16:06)
[2019-11-01] MEDS ORDERED: INSULIN (NOVOLOG) ASPART 100 UNITS/ML 10ML VIAL ONE (16:59)
[2019-11-01] MEDS: methylPREDNISolone NA SUCC 40 MG/1 ML VIAL IVPUSH SCH (21:21)
[2019-11-01] MEDS: ATORVASTATIN CA 10 MG TABLET (FP) PO SCH (21:22)
[2019-11-01] MEDS: APIXABAN 5 MG TABLET PO SCH (21:22)
[2019-11-01] MEDS ORDERED: INSULIN (LEVEMIR) 100 UNITS/ML UNITS SQ SCH (22:00)
[2019-11-02] MEDS ORDERED: INSULIN (NOVOLOG) ASPART 100 UNITS/ML 10ML VIAL ONE (05:56)
[2019-11-02] MEDS: INSULIN SLIDING SCALE (NOVOLOG) 1 VIAL SQ SCH ×3 (06:12→17:09)
--- NOTE | 2019-11-02 07:24 | PN ---
Progress Note, Physician History of Present Illness: PULMONARY ALERT,COMFORTABLE,BREATHING BETTER - Current Medication List Current Medications: Active Medications Acetaminophen (Tylenol -) 650 mg PO Q6H PRN PRN Reason: FEVER Last Admin: 11/01/19 11:03 Dose: 650 mg Documented by: Albuterol Sulfate (Ventolin Hfa Inhaler -) 2 puff IH Q6H PRN PRN Reason: SHORT OF BREATH/WHEEZING Apixaban (Eliquis -) 5 mg PO BID [facility] Last Admin: 11/01/19 21:22 Dose: 5 mg Documented by: Atorvastatin Calcium (Lipitor -) 10 mg PO HS [facility] Last Admin: 11/01/19 21:22 Dose: 10 mg Documented by: Budesonide/Formoterol Fumarate (Symbicort 160/4.5mcg -) 2 puff IH BID [facility] Last Admin: 11/01/19 21:23 Dose: 2 puff Documented by: Carvedilol (Coreg -) 12.5 mg PO BID [facility] Last Admin: 11/01/19 21:22 Dose: 12.5 mg Documented by: Guaifenesin (Robitussin -) 10 ml PO Q6H PRN PRN Reason: COUGH Non-Formulary Medication 100 (mg/ Sodium Chloride) 250 mls @ 250 mls/hr IVPB Q24H [facility] Stop: 11/05/19 15:59 Insulin Aspart (Novolog Vial Sliding Scale -) 1 vial SQ TIDAC [facility]; Protocol Last Admin: 11/02/19 06:12 Dose: 6 units Documented by: Insulin Detemir (Levemir Vial) 10 units SQ [facility] Last Admin: 11/01/19 21:22 Dose: 10 units Documented by: Lisinopril (Prinivil) 5 mg PO DAILY [facility] Last Admin: 11/01/19 10:49 Dose: 5 mg Documented by: Methylprednisolone Sodium Succinate (Solu-Medrol -) 70 mg IVPUSH BID [facility] Last Admin: 11/01/19 21:21 Dose: 70 mg Documented by: Multivitamins/Minerals/Vitamin C (Tab-A-Vit -) 1 tab PO DAILY [facility] Last Admin: 11/01/19 10:49 Dose: 1 tab Documented by: Zinc Sulfate (Orazinc -) 220 mg PO DAILY [facility] Last Admin: 11/01/19 10:49 Dose: 220 mg Documented by: - Objective Vital Signs: Vital Signs Temperature 98.5 F 11/02/19 06:00 Pulse Rate 74 11/02/19 06:00 Respiratory Rate 20 11/02/19 06:00 Blood Pressure 119/66 11/02/19 06:00 O2 Sat by Pulse Oximetry (%) 94 L 11/02/19 01:05 Constitutional: Yes: Well Nourished, Calm Eyes: Yes: WNL HENT: Yes: WNL Neck: Yes: WNL Cardiovascular: Yes: Regular Rate and Rhythm, S1, S2 Respiratory: Yes: Rales, Rhonchi (FEW CRACKLES,RHONCHI) Gastrointestinal: Yes: Normal Bowel Sounds, Soft Extremities: Yes: WNL Edema: No Labs: INR, PTT INR 1.10 (0.83-1.09) H 10/30/19 00:00 Laboratory Tests 11/02/19 11/02/19 05:20 08:00 D-Dimer 686 H Ferritin 529.8 H LD Total 207 C-Reactive Protein 4.1 H Problem List - Problems (1) COVID-19 Code(s): U07.1 - COVID POSITIVE (2) Cardiomyopathy Code(s): I42.9 - CARDIOMYOPATHY, UNSPECIFIED (3) Pneumonia Code(s): J18.9 - PNEUMONIA, UNSPECIFIED ORGANISM (4) Hypoxemia Code(s): R09.02 - HYPOXEMIA (5) Shortness of breath Code(s): R06.02 - SHORTNESS OF BREATH Assessment/Plan Problem List - Problems (1) Suspected 2019 novel coronavirus infection Code(s): Z20.828 - CONTACT W AND EXPOSURE TO OTH VIRAL COMMUNICABLE DISEASES Assessment/Plan COVID19 Cardiomyopathy Thrombocytopenia - O2 to keep SpO2 >90% - trend ferritin, LDH, CRP - on empiric antibiotics - Eliquis 5 bid - steroids - Remdesivir DR HAGER
[2019-11-02 07:35] LABS: BASO % 0.2 % (0-2.0); EOS % 0.1 % (0-4.5); HEMATOCRIT 46.9 % (35.4-49); HEMOGLOBIN 15.5 GM/dL (11.7-16.9); LYMPH % 13.9 % (8-40); MCH 29.1 pg (25.7-33.7); MCHC 33.1 g/dl (32.0-35.9); MEAN CELL VOLUME 87.9 fl (80-96); MEAN PLT VOLUME 9.5 fl (7.5-11.1); MONO % 3.5 % (3.8-10.2); NEUT % 82.3 % (42.8-82.8); PLATELET COUNT 135 K/MM3 (134-434); RBC 5.34 M/mm3 (4.00-5.60); WHITE BLOOD COUNT 4.3 K/mm3 (4.0-10.0)
[2019-11-02 07:50] LABS: ALBUMIN 3.1 g/dl (3.4-5.0); BLOOD UREA NITROGEN 12.3 mg/dL (7-18); CALCIUM 8.4 mg/dL (8.5-10.1); MAGNESIUM 2.5 mg/dL (1.8-2.4); POTASSIUM 4.3 mmol/L (3.5-5.1)
[2019-11-02 07:56] LABS: BILIRUBIN,TOTAL 0.6 mg/dL (0.2-1); CREATININE 0.7 mg/dL (0.55-1.3); TOT PROT 6.4 g/dl (6.4-8.2)
--- NOTE | 2019-11-02 08:20 | PN ---
Progress Note, Physician Chief Complaint: Today patient feels improved less shortness of breath feels more energy remained afebrile History of Present Illness: 58-year-old man history of nonischemic cardiomyopathy diagnosed 10 years ago underwent cardiac catheterization, stable ejection fraction 37% last echo was 3 years ago, follow-up at [facility], 4 pillows orthopnea stable, no PND, stage C, NYHA class 1 , no recent worsening shortness of breath, came back from [place] on last , 2 days ago developed dry cough with low-grade fever and shortness of breath came to ED for evaluation normal CBC, chest x-ray shows bilateral patchy infiltrate, COVID-19 positive, now on full dose anticoagulation , REMDESIVIR and corticosteroid - Current Medication List Current Medications: Active Medications Acetaminophen (Tylenol -) 650 mg PO Q6H PRN PRN Reason: FEVER Last Admin: 11/01/19 11:03 Dose: 650 mg Documented by: Albuterol Sulfate (Ventolin Hfa Inhaler -) 2 puff IH Q6H PRN PRN Reason: SHORT OF BREATH/WHEEZING Apixaban (Eliquis -) 5 mg PO BID [facility] Last Admin: 11/02/19 10:16 Dose: 5 mg Documented by: Atorvastatin Calcium (Lipitor -) 10 mg PO [facility] Last Admin: 11/01/19 21:22 Dose: 10 mg Documented by: Budesonide/Formoterol Fumarate (Symbicort 160/4.5mcg -) 2 puff IH BID [facility] Last Admin: 11/02/19 10:21 Dose: 2 puff Documented by: Carvedilol (Coreg -) 12.5 mg PO BID [facility] Last Admin: 11/02/19 10:17 Dose: 12.5 mg Documented by: Guaifenesin (Robitussin -) 10 ml PO Q6H PRN PRN Reason: COUGH Non-Formulary Medication 100 (mg/ Sodium Chloride) 250 mls @ 250 mls/hr IVPB Q24H [facility] Stop: 11/05/19 15:59 Insulin Aspart (Novolog Vial Sliding Scale -) 1 vial SQ TIDAC [facility]; Protocol Last Admin: 11/02/19 11:56 Dose: 6 units Documented by: Insulin Detemir (Levemir Vial) 15 units SQ [facility] Lisinopril (Prinivil) 5 mg PO DAILY [facility] Last Admin: 11/02/19 10:16 Dose: 5 mg Documented by: Methylprednisolone Sodium Succinate (Solu-Medrol -) 70 mg IVPUSH BID [facility] Last Admin: 11/02/19 10:17 Dose: 70 mg Documented by: Multivitamins/Minerals/Vitamin C (Tab-A-Vit -) 1 tab PO DAILY [facility] Last Admin: 11/02/19 10:16 Dose: 1 tab Documented by: Zinc Sulfate (Orazinc -) 220 mg PO DAILY [facility] Last Admin: 11/02/19 10:16 Dose: 220 mg Documented by: - Objective Vital Signs: Vital Signs Temperature 98.5 F 11/02/19 06:00 Pulse Rate 74 11/02/19 06:00 Respiratory Rate 20 11/02/19 06:00 Blood Pressure 119/66 11/02/19 06:00 O2 Sat by Pulse Oximetry (%) 94 L 11/02/19 01:05 General: Middle-aged man, comfortable, not in distress HEENT mucous membranes moist, no anemia, no jaundice, PERRLA, no nystagmus Neck: No JVD, supple, no bruit, thyroid palpably normal, normal carotid pulsations. Chest: Nontender, bilateral minimal basal rales. CVS: S1-S2 regular no murmur/gallop/rub Abdomen: Nondistended, soft, bowel sounds present. Extremities: No edema., No Calf tenderness, pulses present [employer]: AO X3 , no gross motor sensory deficit Labs: CBC, BMP 11/02/19 05:20 11/02/19 05:20 INR, PTT INR 1.10 (0.83-1.09) H 10/30/19 00:00 CRP: 4.1 Ferritin: 431: 529 D-dimer: 452, 636 LDH: 207 COVID-19 PCR: Positive Hemoglobin A1c: 9.4 Echocardiogram EF 57% Assessment/Plan ASSESSMENT AND PLAN: 1. Hypoxic respiratory failure:, patient present with fever with cough and shortness of breath recent traveling from [facility], considering imaging finding, COVID-19 PCR positive mildly, patient remained afebrile but feels dyspnea on exertion desats to 89% while in the toilet, CRP is 5.9 other i nflammatory markers are trending down, ID input appreciated considering 7 days since symptoms and persistent hypoxia ID recommended REMDESIVIR , , urine Legionella negative, urine strep are negative negative so DC antibiotic, . Incentive spirometry, proning pulmonary exercise, full dose anticoagulation Symbicort and corticosteroids as per pulmonary consult 2. Heart failure with improved ejection fraction: Last EF was 37%, 2 years ago, yesterday echo shows EF of 57% no clinical sign of decompensated heart failure we will continue home medications 3. Pulmonary nodule and lymphadenopathy: Patient has a right-sided lymph paratracheal lymph node 2.6 x1.6 with right middle lobe pulmonary nodule history of smoking and mild COPD changes will follow-up with pulmonary meantime continue albuterol as needed. 4. Morbid obesity nutrition consult and weight management as an outpatient. 5. Type 2 diabetes mellitus; patient is new onset type 2 diabetes mellitus finishing a percent more than 200, will add low-dose basal insulin Levemir 10 units at at bedtime continue correction dose insulin, diabetic diet. 6. Hypokalemia: Repleted Case discussed with , pulmonary and ID attending .
[2019-11-02] MEDS ORDERED: INSULIN (LEVEMIR) 100 UNITS/ML UNITS SQ SCH (08:21)
[2019-11-02] MEDS ORDERED: REMDESIVIR 100 MG in SODIUM CHLORIDE 230 ML IVPB SCH (10:00)
[2019-11-02] MEDS: MULTIVITAMINS (DAILY MVI) TABLET (FP) PO SCH (10:16)
[2019-11-02] MEDS: APIXABAN 5 MG TABLET PO SCH ×2 (10:16→21:28)
[2019-11-02] MEDS: ZINC SULFATE 220 MG CAPSULE (FP) PO SCH (10:16)
[2019-11-02] MEDS: LISINOPRIL 5 MG TABLET (FP) PO SCH (10:16)
[2019-11-02] MEDS: CARVEDILOL 12.5 MG TABLET (FP) PO SCH ×2 (10:17→21:28)
[2019-11-02] MEDS: methylPREDNISolone NA SUCC 40 MG/1 ML VIAL IVPUSH SCH ×2 (10:17→21:27)
[2019-11-02] MEDS: BUDESONIDE/FORMETEROL FUMARATE 160/4.5 mcg INHALER IH SCH ×2 (10:21→21:42)
--- NOTE | 2019-11-02 12:49 | PN ---
Progress Note (short form) - Note Progress Note: feels imlproved, less cough 94% on 2 liters nc day #2 remdesivir Vital Signs Period Temp Pulse Resp BP Sys/Ortega Pulse Ox Last 24 Hr 97.5 F-98.5 F 72-87 18-20 119-136/66-74 94-95 cor-rrr lungs decreased bs at bases abd soft,nt ext no edema CBC, BMP 11/02/19 05:20 11/02/19 05:20 Microbiology 10/30/19 08:50 Blood - Peripheral Venous Blood Culture - Preliminary NO GROWTH OBTAINED AFTER 72 HOURS, INCUBATION TO CON TINUE FOR 2 DAYS. 10/30/19 08:20 Blood - Peripheral Venous Blood Culture - Preliminary NO GROWTH OBTAINED AFTER 72 HOURS, INCUBATION TO CONTINUE FOR 2 DAYS. 11/01/19 04:20 Sputum - Expectorated Gram Stain - Final 11/01/19 04:20 Sputum - Expectorated Sputum Culture - Preliminary NORMAL RESPIRATORY CHARLENE 10/30/19 07:45 Urine - Urine Clean Catch Urine Culture - Final Normal Urogenital Charlene 10/30/19 07:45 Urine For Antigen Detection Legionella Antigen - Final 10/30/19 07:45 Urine For Antigen Detection Streptococcus pneumoniae Antigen (M - Final a/p covid 19 pneumonia-hypoxia noted- day #2 remdisivir started on steroids by pulmonary a/c for elevated ddimer monitor lfts and renal function on remdisivir continue isolation obesity and history of cardiomyopathy make him at high risk for covid 19 - would observe in hospital for now Problem List - Problems (1) Pneumonia Code(s): J18.9 - PNEUMONIA, UNSPECIFIED ORGANISM (2) Suspected 2019 novel coronavirus infection Code(s): Z20.828 - CONTACT W AND EXPOSURE TO [facility] VIRAL COMMUNICABLE DISEASES (3) Polycythemia Code(s): D75.1 - SECONDARY POLYCYTHEMIA
[2019-11-02] MEDS: PANTOPRAZOLE 40 MG TABLET PO SCH (16:27)
[2019-11-02] MEDS: REMDESIVIR 100 MG in SODIUM CHLORIDE 230 ML IVPB SCH (17:01)
[2019-11-02] MEDS: ATORVASTATIN CA 10 MG TABLET (FP) PO SCH (21:28)
[2019-11-02] MEDS: MAG HYDROX/AL HYDROX/SIMETH 30 ML UNIT-DOSE CUP PO SCH (21:37)
[2019-11-03] MEDS: MAG HYDROX/AL HYDROX/SIMETH 30 ML UNIT-DOSE CUP PO SCH ×3 (06:09→21:10)
[2019-11-03] MEDS: INSULIN SLIDING SCALE (NOVOLOG) 1 VIAL SQ SCH ×3 (06:14→17:29)
[2019-11-03 07:21] LABS: BASO % 0.1 % (0-2.0); HEMATOCRIT 44.3 % (35.4-49); HEMOGLOBIN 14.7 GM/dL (11.7-16.9); LYMPH % 11.7 % (8-40); MCH 28.5 pg (25.7-33.7); MCHC 33.3 g/dl (32.0-35.9); MEAN CELL VOLUME 85.7 fl (80-96); MEAN PLT VOLUME 9.3 fl (7.5-11.1); MONO % 4.2 % (3.8-10.2); PLATELET COUNT 194 K/MM3 (134-434); RBC 5.17 M/mm3 (4.00-5.60); RDW 13.8 % (11.9-15.9); WHITE BLOOD COUNT 6.6 K/mm3 (4.0-10.0)
--- NOTE | 2019-11-03 07:48 | PN ---
Progress Note, Physician History of Present Illness: PULMONARY ALERT,COMFORTABLE,SOB IMPROVING,+ COUGH - Current Medication List Current Medications: Active Medications Acetaminophen (Tylenol -) 650 mg PO Q6H PRN PRN Reason: FEVER Last Admin: 11/01/19 11:03 Dose: 650 mg Documented by: Al Hydroxide/Mg Hydroxide (Mylanta Oral Suspension -) 30 ml PO TID [facility] Last Admin: 11/03/19 06:09 Dose: Not Given Documented by: Albuterol Sulfate (Ventolin Hfa Inhaler -) 2 puff IH Q6H PRN PRN Reason: SHORT OF BREATH/WHEEZING Apixaban (Eliquis -) 5 mg PO BID [facility] Last Admin: 11/02/19 21:28 Dose: 5 mg Documented by: Atorvastatin Calcium (Lipitor -) 10 mg PO [facility] Last Admin: 11/02/19 21:28 Dose: 10 mg Documented by: Budesonide/Formoterol Fumarate (Symbicort 160/4.5mcg -) 2 puff IH BID [facility] Last Admin: 11/02/19 21:42 Dose: 2 puff Documented by: Carvedilol (Coreg -) 12.5 mg PO BID [facility] Last Admin: 11/02/19 21:28 Dose: 12.5 mg Documented by: Guaifenesin (Robitussin -) 10 ml PO Q6H PRN PRN Reason: COUGH Non-Formulary Medication 100 (mg/ Sodium Chloride) 250 mls @ 250 mls/hr IVPB Q24H [facility] Stop: 11/05/19 15:59 Last Admin: 11/02/19 17:01 Dose: 250 mls/hr Documented by: Insulin Aspart (Novolog Vial Sliding Scale -) 1 vial SQ TIDAC [facility]; Protocol Last Admin: 11/03/19 06:14 Dose: 8 units Documented by: Insulin Detemir (Levemir Vial) 15 units SQ [facility] Last Admin: 11/02/19 21:37 Dose: 15 units Documented by: Lisinopril (Prinivil) 5 mg PO DAILY [facility] Last Admin: 11/02/19 10:16 Dose: 5 mg Documented by: Methylprednisolone Sodium Succinate (Solu-Medrol -) 70 mg IVPUSH BID [facility] Last Admin: 11/02/19 21:27 Dose: 70 mg Documented by: Multivitamins/Minerals/Vitamin C (Tab-A-Vit -) 1 tab PO DAILY [facility] Last Admin: 11/02/19 10:16 Dose: 1 tab Documented by: Pantoprazole Sodium (Protonix -) 40 mg PO DAILY [facility] Last Admin: 11/02/19 16:27 Dose: 40 mg Documented by: Zinc Sulfate (Orazinc -) 220 mg PO DAILY [facility] Last Admin: 11/02/19 10:16 Dose: 220 mg Documented by: - Objective Vital Signs: Vital Signs Temperature 97.4 F L 11/03/19 06:00 Pulse Rate 81 11/03/19 06:00 Respiratory Rate 18 11/03/19 06:00 Blood Pressure 119/60 11/03/19 06:00 O2 Sat by Pulse Oximetry (%) 94 L 11/03/19 00:56 Constitutional: Yes: Calm, Obese Eyes: Yes: WNL HENT: Yes: WNL Neck: Yes: WNL Cardiovascular: Yes: Regular Rate and Rhythm, S1, S2 Respiratory: Yes: Diminished Gastrointestinal: Yes: Normal Bowel Sounds, Soft Extremities: Yes: WNL Edema: No Labs: CBC, BMP 11/03/19 06:20 INR, PTT INR 1.10 (0.83-1.09) H 10/30/19 00:00 Laboratory Tests 11/02/19 11/03/19 08:00 06:20 D-Dimer 686 H Ferritin 511.1 H LD Total 186 C-Reactive Protein 2.1 H Problem List - Problems (1) COVID-19 Code(s): U07.1 - COVID POSITIVE (2) Cardiomyopathy Code(s): I42.9 - CARDIOMYOPATHY, UNSPECIFIED (3) Pneumonia Code(s): J18.9 - PNEUMONIA, UNSPECIFIED ORGANISM (4) Hypoxemia Code(s): R09.02 - HYPOXEMIA (5) Shortness of breath Code(s): R06.02 - SHORTNESS OF BREATH Assessment/Plan Problem List - Problems (1) Suspected 2019 novel coronavirus infection Code(s): Z20.828 - CONTACT W AND EXPOSURE TO OTH VIRAL COMMUNICABLE DISEASES Assessment/Plan COVID19 Cardiomyopathy Thrombocytopenia Hypoxemia - O2 to keep SpO2 >90% - trend ferritin, LDH, CRP - on empiric antibiotics - Eliquis 5 bid - taper steroids - Remdesivir DR HAGER
[2019-11-03 07:50] LABS: ALBUMIN 3.1 g/dl (3.4-5.0); BILIRUBIN,TOTAL 0.6 mg/dL (0.2-1); BLOOD UREA NITROGEN 12.5 mg/dL (7-18); CALCIUM 8.7 mg/dL (8.5-10.1); CREATININE 0.8 mg/dL (0.55-1.3); POTASSIUM 4.2 mmol/L (3.5-5.1); TOT PROT 6.4 g/dl (6.4-8.2)
[2019-11-03] MEDS ORDERED: INSULIN (LEVEMIR) 100 UNITS/ML UNITS SQ ONE (08:57)
[2019-11-03] MEDS ORDERED: INSULIN (LEVEMIR) 100 UNITS/ML UNITS SQ SCH (08:57)
--- NOTE | 2019-11-03 08:58 | PN ---
Progress Note, Physician Chief Complaint: Today patient feels improved less shortness of breath remained afebrile History of Present Illness: 58-year-old man history of nonischemic cardiomyopathy diagnosed 10 years ago underwent cardiac catheterization, stable ejection fraction 37% last echo was 3 years ago, follow-up at [facility], 4 pillows orthopnea stable, no PND, stage C, NYHA class 1 , no recent worsening shortness of breath, came back from [place] on last , 2 days ago developed dry cough with low-grade fever and shortness of breath came to ED for evaluation normal CBC, chest x-ray shows bilateral patchy infiltrate, COVID-19 positive, now on full dose anticoagulation , REMDESIVIR day 3rd and corticosteroid - Current Medication List Current Medications: Active Medications Acetaminophen (Tylenol -) 650 mg PO Q6H PRN PRN Reason: FEVER Last Admin: 11/01/19 11:03 Dose: 650 mg Documented by: Al Hydroxide/Mg Hydroxide (Mylanta Oral Suspension -) 30 ml PO TID [facility] Last Admin: 11/03/19 06:09 Dose: Not Given Documented by: Albuterol Sulfate (Ventolin Hfa Inhaler -) 2 puff IH Q6H PRN PRN Reason: SHORT OF BREATH/WHEEZING Apixaban (Eliquis -) 5 mg PO BID [facility] Last Admin: 11/02/19 21:28 Dose: 5 mg Documented by: Atorvastatin Calcium (Lipitor -) 10 mg PO HS [facility] Last Admin: 11/02/19 21:28 Dose: 10 mg Documented by: Budesonide/Formoterol Fumarate (Symbicort 160/4.5mcg -) 2 puff IH BID [facility] Last Admin: 11/02/19 21:42 Dose: 2 puff Documented by: Carvedilol (Coreg -) 12.5 mg PO BID [facility] Last Admin: 11/02/19 21:28 Dose: 12.5 mg Documented by: Guaifenesin (Robitussin -) 10 ml PO Q6H PRN PRN Reason: COUGH Non-Formulary Medication 100 (mg/ Sodium Chloride) 250 mls @ 250 mls/hr IVPB Q24H [facility] Stop: 11/05/19 15:59 Last Admin: 11/02/19 17:01 Dose: 250 mls/hr Documented by: Insulin Aspart (Novolog Vial Sliding Scale -) 1 vial SQ TIDAC [facility]; Protocol Last Admin: 11/03/19 06:14 Dose: 8 units Documented by: Insulin Detemir (Levemir Vial) 15 units SQ HS [facility] Last Admin: 11/02/19 21:37 Dose: 15 units Documented by: Lisinopril (Prinivil) 5 mg PO DAILY [facility] Last Admin: 11/02/19 10:16 Dose: 5 mg Documented by: Methylprednisolone Sodium Succinate (Solu-Medrol -) 70 mg IVPUSH BID [facility] Last Admin: 11/02/19 21:27 Dose: 70 mg Documented by: Multivitamins/Minerals/Vitamin C (Tab-A-Vit -) 1 tab PO DAILY [facility] Last Admin: 11/02/19 10:16 Dose: 1 tab Documented by: Pantoprazole Sodium (Protonix -) 40 mg PO DAILY [facility] Last Admin: 11/02/19 16:27 Dose: 40 mg Documented by: Zinc Sulfate (Orazinc -) 220 mg PO DAILY [facility] Last Admin: 11/02/19 10:16 Dose: 220 mg Documented by: - Objective Vital Signs: Vital Signs Temperature 97.4 F L 11/03/19 06:00 Pulse Rate 81 11/03/19 06:00 Respiratory Rate 18 11/03/19 06:00 Blood Pressure 119/60 11/03/19 06:00 O2 Sat by Pulse Oximetry (%) 94 L 11/03/19 00:56 Labs: CBC, BMP 11/03/19 06:20 11/03/19 06:20 INR, PTT INR 1.10 (0.83-1.09) H 10/30/19 00:00 Assessment/Plan ASSESSMENT AND PLAN: 1. Hypoxic respiratory failure:, patient present with fever with cough and shortness of breath recent traveling from [facility], considering imaging finding, COVID-19 PCR positive mildly, patient remained afebrile but feels dyspnea on exertion desats to 89% while in the toilet, CRP is 5.9 other inflammatory markers are trending down, ID input appreciated considering 7 days since symptoms and persistent hypoxia ID recommended REMDESIVIR , , urine Legionella negative, urine strep are negative negative so DC antibiotic, . Incentive spirometry, proning pulmonary exercise, full dose anticoagulation Symbicort and corticosteroids as per pulmonary consult, patient is on Remdesivir day third , apixaban 5 mg twice daily and Solu-Medrol, inflammatory markers are trending normal 2. Heart failure with improved ejection fraction: Last EF was 37%, 2 years ago, yesterday echo shows EF of 57% no clinical sign of decompensated heart failure we will continue home medications 3. Pulmonary nodule and lymphadenopathy: Patient has a right-sided lymph paratracheal lymph node 2.6 x1.6 with right middle lobe pulmonary nodule history of smoking and mild COPD changes will follow-up with pulmonary meantime continue albuterol as needed. 4. Morbid obesity nutrition consult and weight management as an outpatient. 5. Type 2 diabetes mellitus; patient is new onset type 2 diabetes mellitus finishing a percent more than 200, increase Levemir to 20 units at bedtime, 5 minutes limited once, continue correction dose lispro units at at bedtime , diabetic diet. Hemoglobin A1c 9.6 6. Hypokalemia: Repleted Case discussed with , pulmonary and ID attending .
[2019-11-03] MEDS: MULTIVITAMINS (DAILY MVI) TABLET (FP) PO SCH (09:33)
[2019-11-03] MEDS: methylPREDNISolone NA SUCC 40 MG/1 ML VIAL IVPUSH SCH ×2 (09:33→21:09)
[2019-11-03] MEDS: LISINOPRIL 5 MG TABLET (FP) PO SCH (09:33)
[2019-11-03] MEDS: CARVEDILOL 12.5 MG TABLET (FP) PO SCH ×2 (09:33→21:10)
[2019-11-03] MEDS: BUDESONIDE/FORMETEROL FUMARATE 160/4.5 mcg INHALER IH SCH ×2 (09:33→21:16)
[2019-11-03] MEDS: ZINC SULFATE 220 MG CAPSULE (FP) PO SCH (09:33)
[2019-11-03] MEDS: APIXABAN 5 MG TABLET PO SCH ×2 (09:33→21:10)
[2019-11-03] MEDS: PANTOPRAZOLE 40 MG TABLET PO SCH (09:33)
--- NOTE | 2019-11-03 12:14 | PN ---
Progress Note (short form) - Note Progress Note: day #3 remdesivir feels well less cough, less achy remains on 2 liters [place] Vital Signs Period Temp Pulse Resp BP Sys/Ortega Pulse Ox Last 24 Hr 97.2 F-98.3 F 77-90 18-20 103-150/60-85 94-94 cor-rrr lungs clear abd soft,nt ext no edema CBC, BMP 11/03/19 06:20 11/03/19 06:20 Microbiology 11/01/19 04:20 Sputum - Expectorated Gram Stain - Final 11/01/19 04:20 Sputum - Expectorated Sputum Culture - Final NORMAL RESPIRATORY CHARLENE 10/30/19 08:50 Blood - Peripheral Venous Blood Culture - Preliminary NO GROWTH OBTAINED AFTER 96 HOURS, INCUBATION TO CONTINUE FOR 1 DAYS. 10/30/19 08:20 Blood - Peripheral Venous Blood Culture - Preliminary NO GROWTH OBTAINED AFTER 96 HOURS, INCUBATION TO CONTINUE FOR 1 DAYS. 10/30/19 07:45 Urine - Urine Clean Catch Urine Culture - Final Normal Urogenital Charlene 10/30/19 07:45 Urine For Antigen Detection Legionella Antigen - Final 10/30/19 07:45 Urine For Antigen Detection Streptococcus pneumoniae Antigen (M - Final a/p covid 19 pneumonia-hypoxia noted- day #3 remdisivir monitor lfts and renal function on remdisivir appears to be improving continue isolation obesity and history of cardiomyopathy make him at high risk for covid 19 - d/w hospitalist Problem List - Problems (1) Pneumonia Code(s): J18.9 - PNEUMONIA, UNSPECIFIED ORGANISM (2) Suspected 2019 novel coronavirus infection Code(s): Z20.828 - CONTACT W AND EXPOSURE TO [facility] VIRAL COMMUNICABLE DISEASES (3) Polycythemia Code(s): D75.1 - SECONDARY POLYCYTHEMIA
[2019-11-03] MEDS ORDERED: PT OWN MED DRAWER 7, Y5N ONE (15:00)
[2019-11-03] MEDS: REMDESIVIR 100 MG in SODIUM CHLORIDE 230 ML IVPB SCH (15:18)
[2019-11-03] MEDS: ATORVASTATIN CA 10 MG TABLET (FP) PO SCH (21:10)
[2019-11-04] MEDS: MAG HYDROX/AL HYDROX/SIMETH 30 ML UNIT-DOSE CUP PO SCH ×3 (06:19→22:11)
[2019-11-04] MEDS: INSULIN SLIDING SCALE (NOVOLOG) 1 VIAL SQ SCH ×3 (06:30→17:18)
[2019-11-04 08:07] LABS: BASO % 0.1 % (0-2.0); HEMATOCRIT 44.2 % (35.4-49); HEMOGLOBIN 14.7 GM/dL (11.7-16.9); LYMPH % 16.4 % (8-40); MCH 28.5 pg (25.7-33.7); MCHC 33.2 g/dl (32.0-35.9); MEAN CELL VOLUME 85.8 fl (80-96); MEAN PLT VOLUME 9.6 fl (7.5-11.1); MONO % 5.1 % (3.8-10.2); NEUT % 78.4 % (42.8-82.8); PLATELET COUNT 237 K/MM3 (134-434); RBC 5.15 M/mm3 (4.00-5.60); WHITE BLOOD COUNT 7.4 K/mm3 (4.0-10.0)
--- NOTE | 2019-11-04 08:08 | PN ---
Teaching Attending Note Name of Resident: Anabel Yoo ATTENDING PHYSICIAN STATEMENT I saw and evaluated the patient. I reviewed the resident's note and discussed the case with the resident. I agree with the resident's findings and plan as documented. SUBJECTIVE: Patient feels improved no desaturation on exertion, saturating 94 room air able to ambulate OBJECTIVE: Vital Signs Temperature 97.6 F 11/04/19 06:00 Pulse Rate 74 11/04/19 06:00 Respiratory Rate 18 11/04/19 06:00 Blood Pressure 124/55 L 11/04/19 06:00 O2 Sat by Pulse Oximetry (%) 94 L 11/04/19 01:00 General: Middle-aged man, comfortable, not in distress HEENT mucous membranes moist, no anemia, no jaundice, PERRLA, no nystagmus Neck: No JVD, supple, no bruit, thyroid palpably normal, normal carotid pulsations. Chest: Nontender, bilateral minimal basal rales. CVS: S1-S2 regular no murmur/gallop/rub Abdomen: Nondistended, soft, bowel sounds present. Extremities: No edema., No Calf tenderness, pulses present [employer]: AO X3 , no gross motor sensory deficit CBC, BMP 11/04/19 06:40 11/04/19 06:40 CRP: 1.4 COVID-19 PCR: Positive Hemoglobin A1c: 9.4 Echocardiogram EF 57% Active Medications Acetaminophen (Tylenol -) 650 mg PO Q6H PRN PRN Reason: FEVER Last Admin: 11/01/19 11:03 Dose: 650 mg Documented by: Al Hydroxide/Mg Hydroxide (Mylanta Oral Suspension -) 30 ml PO TID [facility] Last Admin: 11/04/19 06:19 Dose: 30 ml Documented by: Albuterol Sulfate (Ventolin Hfa Inhaler -) 2 puff IH Q6H PRN PRN Reason: SHORT OF BREATH/WHEEZING Apixaban (Eliquis -) 5 mg PO BID [facility] Last Admin: 11/04/19 09:07 Dose: 5 mg Documented by: Atorvastatin Calcium (Lipitor -) 10 mg PO HS [facility] Last Admin: 11/03/19 21:10 Dose: 10 mg Documented by: Budesonide/Formoterol Fumarate (Symbicort 160/4.5mcg -) 2 puff IH BID [facility] Last Admin: 11/04/19 09:08 Dose: 2 puff Documented by: Carvedilol (Coreg -) 12.5 mg PO BID [facility] Last Admin: 11/04/19 09:07 Dose: 12.5 mg Documented by: Guaifenesin (Robitussin -) 10 ml PO Q6H PRN PRN Reason: COUGH Non-Formulary Medication 100 (mg/ Sodium Chloride) 250 mls @ 250 mls/hr IVPB Q24H [facility] Stop: 11/05/19 15:59 Last Admin: 11/03/19 15:18 Dose: 250 mls/hr Documented by: Insulin Aspart (Novolog Vial Sliding Scale -) 1 vial SQ TIDAC [facility]; Protocol Last Admin: 11/04/19 11:48 Dose: 8 units Documented by: Insulin Detemir (Levemir Vial) 25 units SQ [facility] Lisinopril (Prinivil) 5 mg PO DAILY [facility] Last Admin: 11/04/19 09:07 Dose: 5 mg Documented by: Methylprednisolone Sodium Succinate (Solu-Medrol -) 35 mg IVPUSH BID [facility] Last Admin: 11/04/19 09:07 Dose: 35 mg Documented by: Multivitamins/Minerals/Vitamin C (Tab-A-Vit -) 1 tab PO DAILY [facility] Last Admin: 11/04/19 09:07 Dose: 1 tab Documented by: Pantoprazole Sodium (Protonix -) 40 mg PO DAILY [facility] Last Admin: 11/04/19 09:07 Dose: 40 mg Documented by: Zinc Sulfate (Orazinc -) 220 mg PO DAILY [facility] Last Admin: 11/04/19 09:07 Dose: 220 mg Documented by: * ASSESSMENT AND PLAN: 1. Hypoxic respiratory failure:, patient present with fever with cough and shortness of breath recent traveling from [facility], diagnosed COVID-19 pneumonia, evaluated by pulmonary, ID on steroids, anticoagulation and Remdesivir day 4, improving no complaint of shortness of breath, CRP trended 1.5 no exertional desaturation. 2. Heart failure with improved ejection fraction: Last EF was 37%, 2 years ago, yesterday echo shows EF of 57% no clinical sign of decompensated heart failure we will continue home medications 3. Pulmonary nodule and lymphadenopathy: Patient has a right-sided lymph paratracheal lymph node 2.6 x1.6 with right middle lobe pulmonary nodule history of smoking and mild COPD changes will follow-up with pulmonary meantime continue albuterol as needed. 4. Morbid obesity nutrition consult and weight management as an outpatient. 5. Type 2 diabetes mellitus; patient is new onset type 2 diabetes mellitus targetFS <180 mg , optimize glycemic control add 5 units Levemir now and increase bedtime Levemir to 25 units 6. Hypokalemia: Repleted Disposition: Code 19 pneumonia patient will complete Remdesivir day fifth tomorrow. Needs high intensity anticoagulation at least for 4 weeks continue apixaban total 4 weeks please discussed with the pulmonary. Total 10 days of steroids. COPD asthma: Follow-up with pulmonary continue Advair Pulmonary nodule enlarges: Needs follow-up with pulmonary lymph node Discussed with resident.
[2019-11-04 08:26] LABS: ALBUMIN 3.1 g/dl (3.4-5.0); BILIRUBIN,TOTAL 0.4 mg/dL (0.2-1); BLOOD UREA NITROGEN 14.9 mg/dL (7-18); CALCIUM 8.7 mg/dL (8.5-10.1); TOT PROT 6.4 g/dl (6.4-8.2)
[2019-11-04] MEDS ORDERED: INSULIN (LEVEMIR) 100 UNITS/ML UNITS SQ ONE (09:00)
[2019-11-04] MEDS: MULTIVITAMINS (DAILY MVI) TABLET (FP) PO SCH (09:07)
[2019-11-04] MEDS: APIXABAN 5 MG TABLET PO SCH ×2 (09:07→22:11)
[2019-11-04] MEDS: PANTOPRAZOLE 40 MG TABLET PO SCH (09:07)
[2019-11-04] MEDS: CARVEDILOL 12.5 MG TABLET (FP) PO SCH ×2 (09:07→22:10)
[2019-11-04] MEDS: methylPREDNISolone NA SUCC 40 MG/1 ML VIAL IVPUSH SCH ×2 (09:07→22:12)
[2019-11-04] MEDS: LISINOPRIL 5 MG TABLET (FP) PO SCH (09:07)
[2019-11-04] MEDS: ZINC SULFATE 220 MG CAPSULE (FP) PO SCH (09:07)
[2019-11-04] MEDS: BUDESONIDE/FORMETEROL FUMARATE 160/4.5 mcg INHALER IH SCH ×2 (09:08→22:12)
--- NOTE | 2019-11-04 11:02 | PN ---
Progress Note (short form) - Note Progress Note: PULMONARY States breathing is improving. +nonproductive cough. No fevers. Vital Signs Period Temp Pulse Resp BP Sys/Ortega Pulse Ox Last 24 Hr 97.3 F-98.3 F 71-84 18-20 109-144/55-78 93-94 Gen: NAD at rest Heart: RRR Lung: decreased breath sounds at the bases Abd: soft, nontender Ext: no edema CBC, BMP 11/04/19 06:40 11/04/19 06:40 Active Medications Acetaminophen (Tylenol -) 650 mg PO Q6H PRN PRN Reason: FEVER Last Admin: 11/01/19 11:03 Dose: 650 mg Documented by: Al Hydroxide/Mg Hydroxide (Mylanta Oral Suspension -) 30 ml PO TID [facility] Last Admin: 11/04/19 06:19 Dose: 30 ml Documented by: Albuterol Sulfate (Ventolin Hfa Inhaler -) 2 puff IH Q6H PRN PRN Reason: SHORT OF BREATH/WHEEZING Apixaban (Eliquis -) 5 mg PO BID [facility] Last Admin: 11/04/19 09:07 Dose: 5 mg Documented by: Atorvastatin Calcium (Lipitor -) 10 mg PO HS [facility] Last Admin: 11/03/19 21:10 Dose: 10 mg Documented by: Budesonide/Formoterol Fumarate (Symbicort 160/4.5mcg -) 2 puff IH BID [facility] Last Admin: 11/04/19 09:08 Dose: 2 puff Documented by: Carvedilol (Coreg -) 12.5 mg PO BID [facility] Last Admin: 11/04/19 09:07 Dose: 12.5 mg Documented by: Guaifenesin (Robitussin -) 10 ml PO Q6H PRN PRN Reason: COUGH Non-Formulary Medication 100 (mg/ Sodium Chloride) 250 mls @ 250 mls/hr IVPB Q24H [facility] Stop: 11/05/19 15:59 Last Admin: 11/03/19 15:18 Dose: 250 mls/hr Documented by: Insulin Aspart (Novolog Vial Sliding Scale -) 1 vial SQ TIDAC [facility]; Protocol Last Admin: 11/04/19 06:30 Dose: 6 units Documented by: Insulin Detemir (Levemir Vial) 25 units SQ [facility] Lisinopril (Prinivil) 5 mg PO DAILY [facility] Last Admin: 11/04/19 09:07 Dose: 5 mg Documented by: Methylprednisolone Sodium Succinate (Solu-Medrol -) 35 mg IVPUSH BID [facility] Last Admin: 11/04/19 09:07 Dose: 35 mg Documented by: Multivitamins/Minerals/Vitamin C (Tab-A-Vit -) 1 tab PO DAILY [facility] Last Admin: 11/04/19 09:07 Dose: 1 tab Documented by: Pantoprazole Sodium (Protonix -) 40 mg PO DAILY [facility] Last Admin: 11/04/19 09:07 Dose: 40 mg Documented by: Zinc Sulfate (Orazinc -) 220 mg PO DAILY [facility] Last Admin: 11/04/19 09:07 Dose: 220 mg Documented by: A/P COVID19 Cardiomyopathy Thrombocytopenia Hypoxemia - O2 to keep SpO2 >90% - trend ferritin, LDH, CRP - on empiric antibiotics - on empiric anticoagulation - taper steroids - complete remdesivir course Problem List - Problems (1) Suspected 2019 novel coronavirus infection Code(s): Z20.828 - CONTACT W AND EXPOSURE TO [facility] VIRAL COMMUNICABLE DISEASES
[2019-11-04] MEDS ORDERED: INSULIN (NOVOLOG) ASPART 100 UNITS/ML 10ML VIAL ONE (11:27)
--- NOTE | 2019-11-04 12:24 | PN ---
Physical Exam: SUBJECTIVE: Patient seen and examined at bedside this morning. No acute events overnight. Patient reports feeling better, saturating >94% on room air with exercise. Denies fevers, chills ,headache, dizziness, chest pain, sob. OBJECTIVE: Vital Signs Temperature 97.6 F 11/04/19 09:17 Pulse Rate 84 11/04/19 09:17 Respiratory Rate 11/04/19 09:17 Blood Pressure 125/70 11/04/19 09:17 O2 Sat by Pulse Oximetry (%) 94 L 11/04/19 10:00 GENERAL: The patient is awake, alert, and fully oriented, in no acute distress. NECK: supple. LUNGS: decreased breath sounds on bilateral bases HEART: Regular rate and rhythm, S1, S2 without murmur ABDOMEN: Soft, nontender, nondistended, normoactive bowel sounds EXTREMITIES: 2+ pulses, warm, well-perfused, no edema. NEUROLOGICAL: Cranial nerves II through XII grossly intact. Normal speech PSYCH: Normal mood, normal affect. SKIN: Warm, dry, normal turgor Laboratory Results - last 24 hr 11/03/19 11/03/19 11/04/19 17:27 21:23 06:22 WBC RBC Hgb Hct MCV MCH MCHC RDW Plt Count MPV Absolute Neuts (auto) Neutrophils % Lymphocytes % Monocytes % Eosinophils % Basophils % Nucleated RBC % Sodium Potassium Chloride Carbon Dioxide Anion Gap BUN Creatinine Est GFR (CKD-EPI)AfAm Est GFR (CKD-EPI)NonAf POC Glucometer 342 352 294 Random Glucose Calcium Total Bilirubin AST ALT Alkaline Phosphatase C-Reactive Protein Total Protein Albumin 11/04/19 11/04/19 11/04/19 06:40 06:40 11:47 WBC 7.4 RBC 5.15 Hgb 14.7 Hct 44.2 MCV 85.8 MCH 28.5 MCHC 33.2 RDW 14.0 Plt Count 237 D MPV 9.6 Absolute Neuts (auto) 5.8 Neutrophils % 78.4 Lymphocytes % 16.4 D Monocytes % 5.1 Eosinophils % 0.0 Basophils % 0.1 Nucleated RBC % 0 Sodium 139 Potassium 4.0 Chloride 102 Carbon Dioxide 28 Anion Gap 9 BUN 14.9 Creatinine 1.0 Est GFR (CKD-EPI)AfAm 95.73 Est GFR (CKD-EPI)NonAf 82.60 POC Glucometer 309 Random Glucose 310 H Calcium 8.7 Total Bilirubin 0.4 AST 16 ALT 41 Alkaline Phosphatase 72 C-Reactive Protein 1.3 H Total Protein 6.4 Albumin 3.1 L Active Medications Generic Name Dose Route Start Last Admin Trade Name Leonard PRN Reason Stop Dose Admin Acetaminophen 650 mg 10/30/19 06:00 11/01/19 11:03 Tylenol - PO 650 mg Q6H PRN Administration FEVER Al Hydroxide/Mg Hydroxide 30 ml 11/02/19 22:00 11/04/19 06:19 Mylanta Oral Suspension - PO 30 ml TID [facility] Administration Albuterol Sulfate 2 puff 10/30/19 04:43 Ventolin Hfa Inhaler - IH Q6H PRN SHORT OF BREATH/WHEEZING Apixaban 5 mg 11/01/19 20:00 11/04/19 09:07 Eliquis - PO 5 mg BID [facility] Administration Atorvastatin Calcium 10 mg 10/30/19 22:00 11/03/19 21:10 Lipitor - PO 10 mg HS [facility] Administration Budesonide/Formoterol Fumarate 2 puff 11/01/19 12:00 11/04/19 09:08 Symbicort 160/4.5mcg - IH 2 puff BID [facility] Administration Carvedilol 12.5 mg 10/30/19 10:00 11/04/19 09:07 Coreg - PO 12.5 mg BID [facility] Administration Guaifenesin 10 ml 10/31/19 08:14 Robitussin - PO Q6H PRN COUGH Non-Formulary Medication 100 250 mls @ 250 mls/hr 11/02/19 15:00 11/03/19 15:18 mg/ Sodium Chloride IVPB 11/05/19 15:59 250 mls/hr Q24H [facility] Administration Insulin Aspart 1 vial 10/31/19 11:00 11/04/19 11:48 Novolog Vial Sliding Scale - SQ 8 units TIDAC [facility] Administration Protocol Insulin Detemir 25 units 11/04/19 08:10 Levemir Vial SQ HS [facility] Lisinopril 5 mg 10/30/19 10:00 11/04/19 09:07 Prinivil PO 5 mg DAILY [facility] Administration Methylprednisolone Sodium Succinate 35 mg 11/03/19 10:21 11/04/19 09:07 Solu-Medrol - IVPUSH 35 mg BID [facility] Administration Multivitamins/Minerals/Vitamin C 1 tab 10/30/19 10:00 11/04/19 09:07 Tab-A-Vit - PO 1 tab DAILY [facility] Administration Pantoprazole Sodium 40 mg 11/02/19 15:15 11/04/19 09:07 Protonix - PO 40 mg DAILY [facility] Administration Zinc Sulfate 220 mg 10/30/19 10:00 11/04/19 09:07 Orazinc - PO 220 mg DAILY [facility] Administration ASSESSMENT/PLAN: Patient is a 58 y/o male with a PMHx of Cardiomyopathy of unknown origin. Who presents to the ED with subjective fever 99.5, increased SOB, myalgias. loss of appetite x3 days. Patient reports recent travel between [place] and [place] x 5 weeks. #Sepsis 2/2 COVID pneumonia -Covid detected -Chest CTA - No gross evidence of PE. Large right paratracheal lymph node that contains a fatty hilum, nonspecific. Mild emphysematous/COPD changes with peripheral reticulonodular pattern mainly in the lower lung, posteriorly likely chronic. Cannot rule out superimposed infiltrates. -Discontinue IV Ceftriaxone and Azithromycin discontinued -Eliquis 5mg bid -Blood cultures, urine legionella/pneumonia negative -Remdesivir started over the weekend, to complete last dose tomorrow -ID (Dr. Al) consulted. REcommendations appreciated. #Acute respiratory distress -2/2 pneumonia, covid -supplemental O2 as needed to keep SpO2 >95% -urine legionella/pneumonia negative -ESR/CRP, Ferritin, LDH trending down -continue Eliquis -Solumedrol 35mg bid -symbicort ih bid and albuterol ih prn -Pulm (Dr. Hernandez) consulted. Recommendations appreciated. #HFrEF -stable, no signs of acute exacerbation -last EF reported by patient to be 37% -Hx of nonischemic cardiomyopathy -BNP 175 -echo done, EF 57% -Continue Lisinopril 5mg daily and Coreg 12.5mg bid #Pulmonary nodule -Chest CT - 7x8mm pulmonary nodule RML, anteriorly abutting the fissure which is nonspecific -follow up CT scan of the chest in 3-6 months is needed for further evaluation. -will refer to outpatient pulmonology. #FEN -Not on any standing fluids -Electrolytes wnl, routine bmp monitoring -Diabetic diet #Prophylaxis -Eliquis 5mg bid #Disposition -full code -med surg Visit type - Emergency Visit Emergency Visit: Yes ED Registration Date: 10/30/19 Care time: The patient presented to the Emergency Department on the above date and was hospitalized for further evaluation of their emergent condition. - New Patient This patient is new to me today: No - Critical Care Critical Care patient: No ATTENDING PHYSICIAN STATEMENT I saw and evaluated the patient. I reviewed the resident's note and discussed the case with the resident. I agree with the resident's findings and plan as documented. SUBJECTIVE: OBJECTIVE: ASSESSMENT AND PLAN:
[2019-11-04] MEDS: REMDESIVIR 100 MG in SODIUM CHLORIDE 230 ML IVPB SCH (14:36)
--- NOTE | 2019-11-04 16:58 | PN ---
Progress Note (short form) - Note Progress Note: day #4 remdesivir feels well off oxygen Vital Signs Period Temp Pulse Resp BP Sys/Ortega Pulse Ox Last 24 Hr 97.2 F-98.3 F 77-90 18-20 103-150/60-85 94-94 cor-rrr lungs clear abd soft,nt ext no edema CBC, BMP 11/04/19 06:40 11/04/19 06:40 Microbiology 10/30/19 08:50 Blood - Peripheral Venous Blood Culture - Final NO GROWTH AFTER 5 DAYS INCUBATION 10/30/19 08:20 Blood - Peripheral Venous Blood Culture - Final NO GROWTH AFTER 5 DAYS INCUBATION a/p covid 19 pneumonia-hypoxia noted- day #4 remdisivir monitor lfts and renal function on remdisivir continue isolation Problem List - Problems (1) Pneumonia Code(s): J18.9 - PNEUMONIA, UNSPECIFIED ORGANISM (2) Suspected 2019 novel coronavirus infection Code(s): Z20.828 - CONTACT W AND EXPOSURE TO OTH VIRAL COMMUNICABLE DISEASES (3) Polycythemia Code(s): D75.1 - SECONDARY POLYCYTHEMIA
[2019-11-04] MEDS: ATORVASTATIN CA 10 MG TABLET (FP) PO SCH (22:11)
[2019-11-04] MEDS: INSULIN (LEVEMIR) 100 UNITS/ML UNITS SQ SCH (22:11)
[2019-11-05] MEDS: MAG HYDROX/AL HYDROX/SIMETH 30 ML UNIT-DOSE CUP PO SCH ×3 (06:22→21:15)
[2019-11-05] MEDS: INSULIN SLIDING SCALE (NOVOLOG) 1 VIAL SQ SCH ×3 (06:22→17:23)
[2019-11-05 07:15] LABS: BASO % 0.1 % (0-2.0); HEMATOCRIT 45.4 % (35.4-49); HEMOGLOBIN 15.2 GM/dL (11.7-16.9); LYMPH % 16.8 % (8-40); MCH 28.9 pg (25.7-33.7); MCHC 33.5 g/dl (32.0-35.9); MEAN CELL VOLUME 86.3 fl (80-96); MEAN PLT VOLUME 9.5 fl (7.5-11.1); MONO % 5.4 % (3.8-10.2); NEUT % 77.7 % (42.8-82.8); PLATELET COUNT 247 K/MM3 (134-434); RBC 5.26 M/mm3 (4.00-5.60); RDW 14.1 % (11.9-15.9); WHITE BLOOD COUNT 8.5 K/mm3 (4.0-10.0)
[2019-11-05 07:48] LABS: ALBUMIN 3.1 g/dl (3.4-5.0); BILIRUBIN,TOTAL 0.4 mg/dL (0.2-1); BLOOD UREA NITROGEN 15.2 mg/dL (7-18); CALCIUM 8.5 mg/dL (8.5-10.1); CREATININE 0.9 mg/dL (0.55-1.3); MAGNESIUM 2.3 mg/dL (1.8-2.4); POTASSIUM 4.4 mmol/L (3.5-5.1); TOT PROT 6.2 g/dl (6.4-8.2)
--- NOTE | 2019-11-05 09:47 | PN ---
Progress Note (short form) - Note Progress Note: PULMONARY Breathing better but not at baseline. +nonproductive cough improving. No fevers. Vital Signs Period Temp Pulse Resp BP Sys/Ortega Pulse Ox Last 24 Hr 97.7 F-98.1 F 68-72 20-20 114-127/46-76 94-95 Gen: NAD at rest Heart: RRR Lung: decreased breath sounds at the bases Abd: soft, nontender Ext: no edema CBC, BMP 11/05/19 06:12 11/05/19 06:12 Active Medications Acetaminophen (Tylenol -) 650 mg PO Q6H PRN PRN Reason: FEVER Last Admin: 11/01/19 11:03 Dose: 650 mg Documented by: Al Hydroxide/Mg Hydroxide (Mylanta Oral Suspension -) 30 ml PO TID [facility] Last Admin: 11/05/19 06:22 Dose: 30 ml Documented by: Albuterol Sulfate (Ventolin Hfa Inhaler -) 2 puff IH Q6H PRN PRN Reason: SHORT OF BREATH/WHEEZING Apixaban (Eliquis -) 5 mg PO BID [facility] Last Admin: 11/04/19 22:11 Dose: 5 mg Documented by: Atorvastatin Calcium (Lipitor -) 10 mg PO HS [facility] Last Admin: 11/04/19 22:11 Dose: 10 mg Documented by: Budesonide/Formoterol Fumarate (Symbicort 160/4.5mcg -) 2 puff IH BID [facility] Last Admin: 11/04/19 22:12 Dose: 2 puff Documented by: Carvedilol (Coreg -) 12.5 mg PO BID [facility] Last Admin: 11/04/19 22:10 Dose: 12.5 mg Documented by: Guaifenesin (Robitussin -) 10 ml PO Q6H PRN PRN Reason: COUGH Non-Formulary Medication 100 (mg/ Sodium Chloride) 250 mls @ 250 mls/hr IVPB Q24H [facility] Stop: 11/05/19 15:59 Last Admin: 11/04/19 14:36 Dose: 250 mls/hr Documented by: Insulin Aspart (Novolog Vial Sliding Scale -) 1 vial SQ TIDAC [facility]; Protocol Last Admin: 11/05/19 06:22 Dose: 8 units Documented by: Insulin Detemir (Levemir Vial) 25 units SQ [facility] Last Admin: 11/04/19 22:11 Dose: 25 units Documented by: Lisinopril (Prinivil) 5 mg PO DAILY [facility] Last Admin: 11/04/19 09:07 Dose: 5 mg Documented by: Methylprednisolone Sodium Succinate (Solu-Medrol -) 35 mg IVPUSH BID [facility] Last Admin: 11/04/19 22:12 Dose: 35 mg Documented by: Multivitamins/Minerals/Vitamin C (Tab-A-Vit -) 1 tab PO DAILY [facility] Last Admin: 11/04/19 09:07 Dose: 1 tab Documented by: Pantoprazole Sodium (Protonix -) 40 mg PO DAILY [facility] Last Admin: 11/04/19 09:07 Dose: 40 mg Documented by: Zinc Sulfate (Orazinc -) 220 mg PO DAILY [facility] Last Admin: 11/04/19 09:07 Dose: 220 mg Documented by: A/P COVID19 Cardiomyopathy Thrombocytopenia Hypoxemia - complete remdesivir course - can change steroids to decadron 6mg PO daily and complete 10 day total course - would continue anticoagulation for at least 1 month - O2 to keep SpO2 >90% - can d/c home after completion of remdesivir from pulmonary standpoint Problem List - Problems (1) Suspected 2019 novel coronavirus infection Code(s): Z20.828 - CONTACT W AND EXPOSURE TO [facility] VIRAL COMMUNICABLE DISEASES
[2019-11-05] MEDS: APIXABAN 5 MG TABLET PO SCH ×2 (10:16→21:15)
[2019-11-05] MEDS: LISINOPRIL 5 MG TABLET (FP) PO SCH (10:16)
[2019-11-05] MEDS: CARVEDILOL 12.5 MG TABLET (FP) PO SCH ×2 (10:17→21:15)
[2019-11-05] MEDS: PANTOPRAZOLE 40 MG TABLET PO SCH (10:17)
[2019-11-05] MEDS: BUDESONIDE/FORMETEROL FUMARATE 160/4.5 mcg INHALER IH SCH ×2 (10:17→21:15)
[2019-11-05] MEDS: ZINC SULFATE 220 MG CAPSULE (FP) PO SCH (10:17)
[2019-11-05] MEDS: MULTIVITAMINS (DAILY MVI) TABLET (FP) PO SCH (10:17)
[2019-11-05] MEDS: DEXAMETHASONE SOD PHOSPHATE 10 MG/1 ML VIAL IVPUSH SCH (10:17)
--- NOTE | 2019-11-05 14:52 | PN ---
Progress Note (short form) - Note Progress Note: day #4 remdesivir feels well off oxygen Vital Signs Period Temp Pulse Resp BP Sys/Ortega Pulse Ox Last 24 Hr 97.2 F-98.3 F 77-90 18-20 103-150/60-85 94-94 cor-rrr lungs clear abd soft,nt ext no edema 11/04/19 06:40 11/04/19 06:40 Microbiology 10/30/19 08:50 Blood - Peripheral Venous Blood Culture - Final NO GROWTH AFTER 5 DAYS INCUBATION 10/30/19 08:20 Blood - Peripheral Venous Blood Culture - Final NO GROWTH AFTER 5 DAYS INCUBATION a/p covid 19 pneumonia-hypoxia noted- day #5 remdisivir continue isolation Problem List - Problems (1) Pneumonia Code(s): J18.9 - PNEUMONIA, UNSPECIFIED ORGANISM (2) Suspected 2019 novel coronavirus infection Code(s): Z20.828 - CONTACT W AND EXPOSURE TO H VIRAL COMMUNICABLE DISEASES (3) Polycythemia Code(s): D75.1 - SECONDARY POLYCYTHEMIA
--- NOTE | 2019-11-05 16:15 | PN ---
Physical Exam: SUBJECTIVE: Patient seen and examined at bedside. No acute events overnight. OBJECTIVE: Vital Signs Temperature 98.0 F 11/05/19 14:00 Pulse Rate 72 11/05/19 14:00 Respiratory Rate 20 11/05/19 14:00 Blood Pressure 112/76 11/05/19 14:00 O2 Sat by Pulse Oximetry (%) 95 11/04/19 22:00 GENERAL: The patient is awake, alert, and fully oriented, in no acute distress. NECK: supple. LUNGS: clear to auscultation bilaterally HEART: Regular rate and rhythm, S1, S2 without murmur ABDOMEN: Soft, nontender, nondistended, normoactive bowel sounds EXTREMITIES: 2+ pulses, warm, well-perfused, no edema. NEUROLOGICAL: Cranial nerves II through XII grossly intact. Normal speech PSYCH: Normal mood, normal affect. SKIN: Warm, dry, normal turgor Laboratory Results - last 24 hr 11/04/19 11/05/19 11/05/19 17:19 06:12 06:12 WBC 8.5 RBC 5.26 Hgb 15.2 Hct 45.4 MCV 86.3 MCH 28.9 MCHC 33.5 RDW 14.1 Plt Count 247 MPV 9.5 Absolute Neuts (auto) 6.6 Total Counted 100 Neutrophils % 77.7 Neutrophils % (Manual) 74.0 Lymphocytes % 16.8 Lymphocytes % (Manual) 14.0 Monocytes % 5.4 Monocytes % (Manual) 12 H Eosinophils % 0.0 Basophils % 0.1 Nucleated RBC % 0 Sodium 138 Potassium 4.4 Chloride 104 Carbon Dioxide 27 Anion Gap 8 BUN 15.2 Creatinine 0.9 Est GFR (CKD-EPI)AfAm 108.73 Est GFR (CKD-EPI)NonAf 93.82 POC Glucometer 335 Random Glucose 331 H Calcium 8.5 Magnesium 2.3 Ferritin 546.0 H Total Bilirubin 0.4 AST 20 ALT 45 Alkaline Phosphatase 73 LD Total 183 C-Reactive Protein 0.7 H Total Protein 6.2 L Albumin 3.1 L 11/05/19 11/05/19 06:17 11:26 WBC RBC Hgb Hct MCV MCH MCHC RDW Plt Count MPV Absolute Neuts (auto) Total Counted Neutrophils % Neutrophils % (Manual) Lymphocytes % Lymphocytes % (Manual) Monocytes % Monocytes % (Manual) Eosinophils % Basophils % Nucleated RBC % Sodium Potassium Chloride Carbon Dioxide Anion Gap BUN Creatinine Est GFR (CKD-EPI)AfAm Est GFR (CKD-EPI)NonAf POC Glucometer 320 287 Random Glucose Calcium Magnesium Ferritin Total Bilirubin AST ALT Alkaline Phosphatase LD Total C-Reactive Protein Total Protein Albumin Active Medications Generic Name Dose Route Start Last Admin Trade Name Freq PRN Reason Stop Dose Admin Acetaminophen 650 mg 10/30/19 06:00 11/01/19 11:03 Tylenol - PO 650 mg Q6H PRN Administration FEVER Al Hydroxide/Mg Hydroxide 30 ml 11/02/19 22:00 11/05/19 06:22 Mylanta Oral Suspension - PO 30 ml TID KUMAR Administration Albuterol Sulfate 2 puff 10/30/19 04:43 Ventolin Hfa Inhaler - IH Q6H PRN SHORT OF BREATH/WHEEZING Apixaban 5 mg 11/01/19 20:00 11/05/19 10:16 Eliquis - PO 5 mg BID KUMAR Administration Atorvastatin Calcium 10 mg 10/30/19 22:00 11/04/19 22:11 Lipitor - PO 10 mg HS KUMAR Administration Budesonide/Formoterol Fumarate 2 puff 11/01/19 12:00 11/05/19 10:17 Symbicort 160/4.5mcg - IH 2 puff BID KUMAR Administration Carvedilol 12.5 mg 10/30/19 10:00 11/05/19 10:17 Coreg - PO 12.5 mg BID KUMAR Administration Dexamethasone Sodium Phosphate 6 mg 11/05/19 10:00 11/05/19 10:17 Decadron Injection - IVPUSH 6 mg DAILY KUMAR Administration Guaifenesin 10 ml 10/31/19 08:14 Robitussin - PO Q6H PRN COUGH Insulin Aspart 1 vial 10/31/19 11:00 11/05/19 11:27 Novolog Vial Sliding Scale - SQ 6 units TIDAC KUMAR Administration Protocol Insulin Detemir 25 units 11/04/19 08:10 11/04/19 22:11 Levemir Vial SQ 25 units HS KUMAR Administration Lisinopril 5 mg 10/30/19 10:00 11/05/19 10:16 Prinivil PO 5 mg DAILY KUMAR Administration Multivitamins/Minerals/Vitamin C 1 tab 10/30/19 10:00 11/05/19 10:17 Tab-A-Vit - PO 1 tab DAILY KUMAR Administration Pantoprazole Sodium 40 mg 11/02/19 15:15 11/05/19 10:17 Protonix - PO 40 mg DAILY KUMAR Administration Zinc Sulfate 220 mg 10/30/19 10:00 11/05/19 10:17 Orazinc - PO 220 mg DAILY KUMAR Administration ASSESSMENT/PLAN: Patient is a 58 y/o male with a PMHx of Cardiomyopathy of unknown origin. Who presents to the ED with subjective fever 99.5, increased SOB, myalgias. loss of appetite x3 days. Patient reports recent travel between [place] and [place] x 5 weeks. #Sepsis 2/2 COVID pneumonia -Covid detected -Chest CTA - No gross evidence of PE. Large right paratracheal lymph node that contains a fatty hilum, nonspecific. Mild emphysematous/COPD changes with peripheral reticulonodular pattern mainly in the lower lung, posteriorly likely chronic. Cannot rule out superimposed infiltrates. -Discontinue IV Ceftriaxone and Azithromycin discontinued -Eliquis 5mg bid -Blood cultures, urine legionella/pneumonia negative -Remdesivir started over the weekend, to complete last dose today -ID (Dr. Al) consulted. REcommendations appreciated. #Acute respiratory distress -2/2 pneumonia, covid -supplemental O2 as needed to keep SpO2 >95% -urine legionella/pneumonia negative -ESR/CRP, Ferritin, LDH trending down -continue Eliquis -Solumedrol 35mg bid -symbicort ih bid and albuterol ih prn -Pulm (Dr. Hernandez) consulted. Recommendations appreciated. #HFrEF -stable, no signs of acute exacerbation -last EF reported by patient to be 37% -Hx of nonischemic cardiomyopathy -BNP 175 -echo done, EF 57% -Continue Lisinopril 5mg daily and Coreg 12.5mg bid #Pulmonary nodule -Chest CT - 7x8mm pulmonary nodule RML, anteriorly abutting the fissure which is nonspecific -follow up CT scan of the chest in 3-6 months is needed for further evaluation. -will refer to outpatient pulmonology. #FEN -Not on any standing fluids -Electrolytes wnl, routine bmp monitoring -Diabetic diet #Prophylaxis -Eliquis 5mg bid #Disposition -full code -med surg Visit type - Emergency Visit Emergency Visit: Yes ED Registration Date: 10/30/19 Care time: The patient presented to the Emergency Department on the above date and was hospitalized for further evaluation of their emergent condition. - New Patient This patient is new to me today: No - Critical Care Critical Care patient: No ATTENDING PHYSICIAN STATEMENT I saw and evaluated the patient. I reviewed the resident's note and discussed the case with the resident. I agree with the resident's findings and plan as documented. SUBJECTIVE: OBJECTIVE: ASSESSMENT AND PLAN:
[2019-11-05] MEDS: REMDESIVIR 100 MG in SODIUM CHLORIDE 230 ML IVPB SCH (17:23)
[2019-11-05] MEDS: ATORVASTATIN CA 10 MG TABLET (FP) PO SCH (21:15)
[2019-11-05] MEDS: INSULIN (LEVEMIR) 100 UNITS/ML UNITS SQ SCH (21:15)
[2019-11-06] MEDS: INSULIN SLIDING SCALE (NOVOLOG) 1 VIAL SQ SCH ×2 (06:21→11:00)
[2019-11-06] MEDS: MAG HYDROX/AL HYDROX/SIMETH 30 ML UNIT-DOSE CUP PO SCH ×2 (06:22→14:36)
[2019-11-06 06:38] LABS: BASO % 0.3 % (0-2.0); EOS % 0.2 % (0-4.5); LYMPH % 28.8 % (8-40); MCH 28.1 pg (25.7-33.7); MCHC 32.6 g/dl (32.0-35.9); MEAN CELL VOLUME 86.2 fl (80-96); MEAN PLT VOLUME 8.8 fl (7.5-11.1); MONO % 7.6 % (3.8-10.2); NEUT % 63.1 % (42.8-82.8); PLATELET COUNT 280 K/MM3 (134-434); RBC 5.34 M/mm3 (4.00-5.60); WHITE BLOOD COUNT 11.7 K/mm3 (4.0-10.0)
[2019-11-06 07:03] LABS: BLOOD UREA NITROGEN 15.5 mg/dL (7-18); CALCIUM 8.9 mg/dL (8.5-10.1); CREATININE 1.1 mg/dL (0.55-1.3); POTASSIUM 3.9 mmol/L (3.5-5.1)
[2019-11-06 08:33] LABS: ANISOCYTOSIS 1+; MACROCYTOSIS 0; PLATELET ESTIMATE NORMAL
--- NOTE | 2019-11-06 10:33 | PN ---
Progress Note (short form) - Note Progress Note: feels well off oxygen has completed remdesivir Vital Signs Period Temp Pulse Resp BP Sys/Ortega Pulse Ox Last 24 Hr 97.5 F-98.0 F 64-76 20-20 100-122/60-77 94-95 cor-rrr lungs clear abd soft,nt ext no edema CBC, BMP 11/06/19 06:05 11/06/19 06:05 Microbiology 10/30/19 08:50 Blood - Peripheral Venous Blood Culture - Final NO GROWTH AFTER 5 DAYS INCUBATION 10/30/19 08:20 Blood - Peripheral Venous Blood Culture - Final NO GROWTH AFTER 5 DAYS INCUBATION 11/01/19 04:20 Sputum - Expectorated Gram Stain - Final 11/01/19 04:20 Sputum - Expectorated Sputum Culture - Final NORMAL RESPIRATORY CHARLENE 10/30/19 07:45 Urine - Urine Clean Catch Urine Culture - Final Normal Urogenital Charlene 10/30/19 07:45 Urine For Antigen Detection Legionella Antigen - Final 10/30/19 07:45 Urine For Antigen Detection Streptococcus pneumoniae Antigen (M - Final a/p covid 19 pneumonia-hypoxia resolved has completed remdesivir continue isolation-minimum another 3 days at home- he will contact [facility] to discuss Problem List - Problems (1) Pneumonia Code(s): J18.9 - PNEUMONIA, UNSPECIFIED ORGANISM (2) Suspected 2019 novel coronavirus infection Code(s): Z20.828 - CONTACT W AND EXPOSURE TO [facility] VIRAL COMMUNICABLE DISEASES (3) Polycythemia Code(s): D75.1 - SECONDARY POLYCYTHEMIA
[2019-11-06] MEDS ORDERED: PT OWN MED DRAWER 7, Y5N ONE (10:39)
[2019-11-06] MEDS: LISINOPRIL 5 MG TABLET (FP) PO SCH (10:53)
[2019-11-06] MEDS: MULTIVITAMINS (DAILY MVI) TABLET (FP) PO SCH (10:53)
[2019-11-06] MEDS: PANTOPRAZOLE 40 MG TABLET PO SCH (10:53)
[2019-11-06] MEDS: APIXABAN 5 MG TABLET PO SCH (10:53)
[2019-11-06] MEDS: ZINC SULFATE 220 MG CAPSULE (FP) PO SCH (10:53)
[2019-11-06] MEDS: DEXAMETHASONE SOD PHOSPHATE 10 MG/1 ML VIAL IVPUSH SCH (10:53)
[2019-11-06] MEDS: BUDESONIDE/FORMETEROL FUMARATE 160/4.5 mcg INHALER IH SCH (10:54)
[2019-11-06] MEDS: CARVEDILOL 12.5 MG TABLET (FP) PO SCH (10:54)
--- NOTE | 2019-11-06 13:35 | PN ---
Progress Note (short form) - Note Progress Note: PULMONARY Breathing better but not at baseline. No fevers. Vital Signs Period Temp Pulse Resp BP Sys/Ortega Pulse Ox Last 24 Hr 97.5 F-98.0 F 64-76 20-20 100-122/60-77 94-96 Gen: NAD at rest Heart: RRR Lung: decreased breath sounds at the bases Abd: soft, nontender Ext: no edema CBC, BMP 11/06/19 06:05 11/06/19 06:05 Active Medications Acetaminophen (Tylenol -) 650 mg PO Q6H PRN PRN Reason: FEVER Last Admin: 11/01/19 11:03 Dose: 650 mg Documented by: Al Hydroxide/Mg Hydroxide (Mylanta Oral Suspension -) 30 ml PO TID [facility] Last Admin: 11/06/19 06:22 Dose: 30 ml Documented by: Albuterol Sulfate (Ventolin Hfa Inhaler -) 2 puff IH Q6H PRN PRN Reason: SHORT OF BREATH/WHEEZING Apixaban (Eliquis -) 5 mg PO BID [facility] Last Admin: 11/06/19 10:53 Dose: 5 mg Documented by: Atorvastatin Calcium (Lipitor -) 10 mg PO HS [facility] Last Admin: 11/05/19 21:15 Dose: 10 mg Documented by: Budesonide/Formoterol Fumarate (Symbicort 160/4.5mcg -) 2 puff IH BID [facility] Last Admin: 11/06/19 10:54 Dose: 2 puff Documented by: Carvedilol (Coreg -) 12.5 mg PO BID [facility] Last Admin: 11/06/19 10:54 Dose: 12.5 mg Documented by: Dexamethasone Sodium Phosphate (Decadron Injection -) 6 mg IVPUSH DAILY [facility] Last Admin: 11/06/19 10:53 Dose: 6 mg Documented by: Guaifenesin (Robitussin -) 10 ml PO Q6H PRN PRN Reason: COUGH Insulin Aspart (Novolog Vial Sliding Scale -) 1 vial SQ TIDAC [facility]; Protocol Last Admin: 11/06/19 11:00 Dose: 6 units Documented by: Insulin Detemir (Levemir Vial) 25 units SQ [facility] Last Admin: 11/05/19 21:15 Dose: 25 units Documented by: Lisinopril (Prinivil) 5 mg PO DAILY [facility] Last Admin: 11/06/19 10:53 Dose: 5 mg Documented by: Multivitamins/Minerals/Vitamin C (Tab-A-Vit -) 1 tab PO DAILY [facility] Last Admin: 11/06/19 10:53 Dose: 1 tab Documented by: Pantoprazole Sodium (Protonix -) 40 mg PO DAILY [facility] Last Admin: 11/06/19 10:53 Dose: 40 mg Documented by: Zinc Sulfate (Orazinc -) 220 mg PO DAILY [facility] Last Admin: 11/06/19 10:53 Dose: 220 mg Documented by: A/P COVID19 Cardiomyopathy Thrombocytopenia Hypoxemia - completed remdesivir course - can change steroids to decadron 6mg PO daily and complete 10 day total course - would continue anticoagulation for at least 1 month - O2 to keep SpO2 >90% - can d/c home from pulmonary standpoint Problem List - Problems (1) Suspected 2018 novel coronavirus infection Code(s): Z20.828 - CONTACT W AND EXPOSURE TO [facility] VIRAL COMMUNICABLE DISEASES
--- NOTE | 2019-11-06 13:59 | DS ---
Physical Exam: SUBJECTIVE: Patient seen and examined OBJECTIVE: Vital Signs Temperature 97.5 F L 11/06/19 06:00 Pulse Rate 64 11/06/19 06:00 Respiratory Rate 20 11/06/19 06:00 Blood Pressure 122/77 11/06/19 06:00 O2 Sat by Pulse Oximetry (%) 96 11/06/19 10:00 PHYSICAL EXAM GENERAL: The patient is awake, alert, and fully oriented, in no acute distress. NECK: supple. LUNGS: clear to auscultation bilaterally HEART: Regular rate and rhythm, S1, S2 without murmur ABDOMEN: Soft, nontender, nondistended, normoactive bowel sounds EXTREMITIES: 2+ pulses, warm, well-perfused, no edema. NEUROLOGICAL: Cranial nerves II through XII grossly intact. Normal speech PSYCH: Normal mood, normal affect. SKIN: Warm, dry, normal turgor LABS Laboratory Results - last 24 hr 11/05/19 11/06/19 11/06/19 16:05 06:05 06:05 WBC 11.7 H RBC 5.34 Hgb 15.0 Hct 46.0 MCV 86.2 MCH 28.1 MCHC 32.6 RDW 14.0 Plt Count 280 MPV 8.8 Absolute Neuts (auto) 7.4 Neutrophils % 63.1 Neutrophils % (Manual) 58.0 D Band Neutrophils % 0.0 Lymphocytes % 28.8 D Lymphocytes % (Manual) 24.0 D Monocytes % 7.6 Monocytes % (Manual) 9 Eosinophils % 0.2 D Eosinophils % (Manual) 0.0 Basophils % 0.3 Basophils % (Manual) 0.0 Myelocytes % (Man) 0 Promyelocytes % (Man) 0 Blast Cells % (Manual) 0 Nucleated RBC % 1 H Metamyelocytes 0 Hypochromia 0 Platelet Estimate Normal Polychromasia 1+ Poikilocytosis 1+ Anisocytosis 1+ Microcytosis 1+ Macrocytosis 0 Sodium 137 Potassium 3.9 Chloride 103 Carbon Dioxide 28 Anion Gap 7 L BUN 15.5 Creatinine 1.1 Est GFR (CKD-EPI)AfAm 85.31 Est GFR (CKD-EPI)NonAf 73.61 POC Glucometer 361 Random Glucose 261 H Calcium 8.9 Ferritin 650.9 H LD Total 182 C-Reactive Protein 0.5 H 11/06/19 11/06/19 06:19 10:56 WBC RBC Hgb Hct MCV MCH MCHC RDW Plt Count MPV Absolute Neuts (auto) Neutrophils % Neutrophils % (Manual) Band Neutrophils % Lymphocytes % Lymphocytes % (Manual) Monocytes % Monocytes % (Manual) Eosinophils % Eosinophils % (Manual) Basophils % Basophils % (Manual) Myelocytes % (Man) Promyelocytes % (Man) Blast Cells % (Manual) Nucleated RBC % Metamyelocytes Hypochromia Platelet Estimate Polychromasia Poikilocytosis Anisocytosis Microcytosis Macrocytosis Sodium Potassium Chloride Carbon Dioxide Anion Gap BUN Creatinine Est GFR (CKD-EPI)AfAm Est GFR (CKD-EPI)NonAf POC Glucometer 251 254 Random Glucose Calcium Ferritin LD Total C-Reactive Protein HOSPITAL COURSE: Date of Admission:10/30/19 Date of Discharge: 11/06/19 Patient is a 58 y/o male with a PMHx of Cardiomyopathy of unknown origin. Who presents to the ED with subjective fever 99.5, increased SOB, myalgias. loss of appetite x3 days. Patient reports recent travel between [place] and [place] x 5 weeks. #Sepsis 2/2 COVID pneumonia -Covid detected -Chest CTA - No gross evidence of PE. Large right paratracheal lymph node that contains a fatty hilum, nonspecific. Mild emphysematous/COPD changes with peripheral reticulonodular pattern mainly in the lower lung, posteriorly likely chronic. Cannot rule out superimposed infiltrates. -Eliquis 5mg bid -Blood cultures, urine legionella/pneumonia negative -Remdesivir course completed -ID (Dr. Al) consulted. REcommendations appreciated. #Acute respiratory distress -2/2 pneumonia, covid, improved -urine legionella/pneumonia negative -ESR/CRP, Ferritin, LDH trending down -Continue Decadron 6mg to complete 10 days -symbicort ih bid and albuterol ih prn -Pulm (Dr. Hernandez) consulted. Recommendations appreciated. #HFrEF -stable, no signs of acute exacerbation -echo done, EF 57% -Continue Lisinopril 5mg daily and Coreg 12.5mg bid -follow up with patient's filter cleaner #Pulmonary nodule -Chest CT - 7x8mm pulmonary nodule RML, anteriorly abutting the fissure which is nonspecific -follow up CT scan of the chest in 3-6 months is needed for further evaluation. -will refer to outpatient pulmonology. Minutes to complete discharge: 38 Discharge Summary Problems reviewed: Yes Reason For Visit: SUSPECTED 2019 NOVEL CORONAVIRUS INFECTION, Current Active Problems Acute respiratory failure with hypoxia (Acute) COVID-19 (Acute) Cardiomyopathy (Acute) Hypoxemia (Acute) Pneumonia (Acute) Polycythemia (Acute) Respiratory failure (Acute) Sepsis (Acute) Shortness of breath (Acute) Suspected 2019 novel coronavirus infection (Acute) Condition: Stable - Instructions Diet, Activity, Other Instructions: Your visit You were admitted in the hospital because you had fever and shortness of breath. you were found to be positive for the COVID virus. You received the course of Remdesivir. You continue to improve throughout the hospital stay. You are now stable for discharge. Please stay at home and quarantine yourself for the next 2 weeks. Wear a face mask at all times when you go outside, and maintain social distancing. Your blood sugars was noted to be elevated. This was likely because of the steroids. We will prescribe you with Metformin to help bring down your blood sugars while your on steroids. Please take them as prescribed. Medications Please take the following medications as prescribed: 1. Eliquis 5mg twice a day for 30 days. 2. Decadron 6mg once daily starting tomorrow for 4 more days. 3. Protonix 40mg daily for 5 days while on steroids 4. Zinc 220mg daily 5. Multivitamins 1 tab daily. 6. Metformin 1000mg twice a day. Please continue your other home medications. Follow up Please follow up with your primary care provider in 2 weeks. Please follow up with the museum tour guide (Dr. Hernandez) in 2 weeks. Please call the office first to schedule an appointment. Additional info Please call 911 or go to the ED if with any worsening fevers, chills, headache, dizziness, chest pain, shortness of breath, belly pain, or any new concerns noted. Referrals: Viraj Hernandez MD [Staff Physician] - 2 Weeks Renetta Aponte MD [Primary Care Provider] - 2 Weeks Disposition: HOME - Home Medications Comprehensive Discharge Medication List: Ambulatory Orders Carvedilol [Coreg -] 12.5 mg PO BID 10/29/19 Lisinopril 5 mg PO DAILY 10/29/19 Simvastatin 20 mg PO HS 10/29/19 Albuterol Sulfate Inhaler - [Ventolin HFA Inhaler -] 2 puff IH Q6H PRN #1 inhaler 11/05/19 Apixaban [Eliquis -] 5 mg PO BID #60 tablet 11/05/19 Dexamethasone [Decadron] 6 mg PO DAILY #5 tablet 11/05/19 Multivitamins [Multivit ([facility] Formulary)] 1 tab PO DAILY #30 tab 11/05/19 Pantoprazole Sodium [Protonix -] 40 mg PO DAILY #5 tablet.ec 11/05/19 Zinc Sulfate [Orazinc -] 220 mg PO DAILY #30 capsule 11/05/19 Ascorbate Calcium [Vitamin C] 500 mg PO DAILY #30 tablet 11/06/19 Metformin HCl [Glucophage] 1,000 mg PO BID #30 tablet 11/06/19 This patient is new to me today: No Emergency Visit: Yes ED Registration Date: 10/30/19 Care time: The patient presented to the Emergency Department on the above date and was hospitalized for further evaluation of their emergent condition. Critical Care patient: No - Discharge Referral Referred to [facility] No ATTENDING PHYSICIAN STATEMENT I saw and evaluated the patient. I reviewed the resident's note and discussed the case with the resident. I agree with the resident's findings and plan as documented. SUBJECTIVE: OBJECTIVE: ASSESSMENT AND PLAN:
[2019-11-06 14:20] VITALS: BMI 36.1
[2019-11-06 14:38] VITALS: BP 117/73; PULSE 63; TEMP 97.1
--- NOTE | 2019-11-08 00:27 | PN ---
Teaching Attending Note Name of Resident: Anabel Yoo ATTENDING PHYSICIAN STATEMENT I saw and evaluated the patient. I reviewed the resident's note and discussed the case with the resident. I agree with the resident's findings and plan as documented. SUBJECTIVE: Patient seen and examined bedside, admitted for COVID pneumonitis s/p Actemra with improvement of course, satting well on RA. VSS. OBJECTIVE: Gen: NAD at rest, Speaking in full sentences, ambulatory Heart: RRR Lung: decreased breath sounds at the bases Abd: soft, nontender Ext: no edema Home Medications Medication Instructions Recorded Carvedilol [Coreg -] 12.5 mg PO BID 10/29/19 Lisinopril 5 mg PO DAILY 10/29/19 Simvastatin 20 mg PO HS 10/29/19 Albuterol Sulfate Inhaler - 2 puff IH Q6H PRN #1 inhaler 11/05/19 [Ventolin HFA Inhaler -] Apixaban [Eliquis -] 5 mg PO BID #60 tablet 11/05/19 Dexamethasone [Decadron] 6 mg PO DAILY #5 tablet 11/05/19 Multivitamins [Multivit ([facility] 1 tab PO DAILY #30 tab 11/05/19 Formulary)] Pantoprazole Sodium [Protonix -] 40 mg PO DAILY #5 tablet.ec 11/05/19 Zinc Sulfate [Orazinc -] 220 mg PO DAILY #30 capsule 11/05/19 Ascorbate Calcium [Vitamin C] 500 mg PO DAILY #30 tablet 11/06/19 Metformin HCl [Glucophage] 1,000 mg PO BID #30 tablet 11/06/19 ASSESSMENT AND PLAN: 58 M COVID pneumonitis s/p Actemra HTN HLD Steroid induced hyperglycemia Plan: Therapeutic AC d/t high thrombo-embolic risk O2 to keep sats >92% Zinc/Vit C/Nebs Coreg/GRIFFIN for BP management Will need outpatient Metformin for sugar control until steroids are DCed DVT ppx: Eliquis
--- NOTE | 2019-11-08 00:30 | PN ---
Teaching Attending Note Name of Resident: Anabel Yoo ATTENDING PHYSICIAN STATEMENT I saw and evaluated the patient. I reviewed the resident's note and discussed the case with the resident. I agree with the resident's findings and plan as documented. SUBJECTIVE: Patient seen and examined bedside, feeling well, asking to go home, satting well on RA, ambulatory, NAD. VSS. OBJECTIVE: Gen: NAD at rest, Speaking in full sentences, ambulatory Heart: RRR, S1 S2+ Lung: good air entry b/l, no accessory M use Abd: soft, nontender Ext: no edema Home Medications Medication Instructions Recorded Carvedilol [Coreg -] 12.5 mg PO BID 10/29/19 Lisinopril 5 mg PO DAILY 10/29/19 Simvastatin 20 mg PO HS 10/29/19 Albuterol Sulfate Inhaler - 2 puff IH Q6H PRN #1 inhaler 11/05/19 [Ventolin HFA Inhaler -] Apixaban [Eliquis -] 5 mg PO BID #60 tablet 11/05/19 Dexamethasone [Decadron] 6 mg PO DAILY #5 tablet 11/05/19 Multivitamins [Multivit ([facility] 1 tab PO DAILY #30 tab 11/05/19 Formulary)] Pantoprazole Sodium [Protonix -] 40 mg PO DAILY #5 tablet.ec 11/05/19 Zinc Sulfate [Orazinc -] 220 mg PO DAILY #30 capsule 11/05/19 Ascorbate Calcium [Vitamin C] 500 mg PO DAILY #30 tablet 11/06/19 Metformin HCl [Glucophage] 1,000 mg PO BID #30 tablet 11/06/19 ASSESSMENT AND PLAN: 58 M COVID pneumonitis s/p Actemra HTN HLD Steroid induced hyperglycemia Plan: Therapeutic AC w/ Eliquis x1 month d/t high thrombo-embolic risk O2 to keep sats >92% Zinc/Vit C/Nebs Coreg/GRIFFIN for BP management Metformin for sugar control until steroids are DCed (1 month supply) Follow w/ OP lead massage therapist/PCP DC home
== END 2019-11-06 16:21 | disposition home or self-care (01) | DRG 177 ==
LOC: JER 22:01 → JERBED 10-30 02:20 → J8W 10-31 18:50
PROVIDERS: ADMIT Internal Medicine
PROC: 8E0ZXY6 Isolation (ICD-10-PCS; principal; 2019-10-30)
DX: U07.1 COVID-19 (principal); J96.01 Acute respiratory failure with hypoxia; A41.9 Sepsis, unspecified organism; J12.89 Other viral pneumonia; I42.9 Cardiomyopathy, unspecified; I50.20 Unspecified systolic (congestive) heart failure; R91.1 Solitary pulmonary nodule; R50.9 Fever, unspecified; E66.9 Obesity, unspecified; Z68.36 Body mass index [BMI] 36.0-36.9, adult; D75.1 Secondary polycythemia; D69.6 Thrombocytopenia, unspecified; E87.6 Hypokalemia; I11.0 Hypertensive heart disease with heart failure; Z20.828 Contact with and (suspected) exposure to other viral communicable diseases; R73.9 Hyperglycemia, unspecified
CPT/HCPCS: 36415; 71046-TC-FY; 71275-TC; 80048; 80053; 82550; 82728; 82962; 83036; 83615; 83735; 83880; 84484; 85025; 85379; 85610; 85730; 86140; 86850; 86900; 86901; 87040; 87070; 87086; 87205; 87899; 93005; 93010; 93306-TC; 99285-25; J0131; J1100; U0003